=== PATIENT | female | born 1950 | race Caucasian/White ===

== ENCOUNTER 2023-07-04 10:21 | Emergency (ER) | payer MEDICARE, SELFPAY ==
[2023-07-04] VITALS (20 sets, daily range): BP systolic 125–195; BP diastolic 78–102; PULSE 62–81; RESP 18; TEMP 35.9; O2SAT 92–97; BMI 21.1
--- NOTE | 2023-07-04 11:01 | CRLHL7_ITS ---
For Patients: As a result of the Cures Act, medical imaging exams and procedure reports are released immediately into your electronic medical record. You may view this report before your referring provider. If you have questions, please contact your health care provider. INDICATION: SOB, right lower rib pain TECHNIQUE: Chest 2 views COMPARISON: 12/22/2015, 05/12/2016 FINDINGS: Lung volumes are increased. Degenerative changes. Postop changes upper lumbar spine. No fracture. Cardiac silhouette is similar. Unchanged central pulmonary vessels. Postop changes left shoulder. No acute infiltrate. No edema or effusion. No pneumothorax. IMPRESSION: No acute findings. Dictated by Shiraz Salgado MD @ 07/04/2023 11:54:43 AM (Electronically Signed)
--- OUTSIDE RECORDS SUMMARY | 2023-07-04 11:14 | XMS_ITS | Continuity of Care Document ---
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 [employer] Name Role Phone Evens Willis MD Unavailable Unavailable Allergies, Adverse Reactions, Alerts Substance Reaction Status Criticality Penicillins Active No Information Procedures Procedure Date Office/Outpatient Visit,Est, Mod 2012 X-Ray Exam Lower Spine 2-3 Views 2012 Advance Directives Directive Yes / No Effective Date File Name No Information Encounters Encounter Description Practice Location Reason(s) For Visit Diagnoses Date Provider Providers Copied on Encounter [facility], [address] [place] [address], [facility], tel:[phone] [facility] No Information 4 Alba Horner. [facility], [address] [place] [address] [address], [place], [id number], [place]. tel:[phone] Office/Outpat ient Visit,Est, Mod [facility], [address] [place], [place] [address] [place] [address], [address], [place] tel:[phone] [facility] [place] 3 Mehbod Amir. [facility], [address] [place] [address], [place], [id number], [place]. tel:[phone] Family History Family Member Type Diagnosis Age At Onset No Information Payers Payer name Insurance type Covered democrat ID Authorkadeema trung(s) [facility] [id number] Out Of State [id number] Social History Type Description Quantity Date Captured Comments Sex Female Smoking Status No Information Chief Complaint And Reason For Visit No Information Reason For Referral Reason For Referral No Information History Of Present Illness Encounter Date Complaint History Of Prese nt Illness No Information Functional Status Date Functional Assessmen t No Information Instructions Date Instruction Additional Infor mation No Information Assessments Type Assessment Date No Information Patient Care Teams Name Effective Dates (start - stop) Status Members No Information
--- NOTE | 2023-07-04 11:18 | ED_ITS ---
HPI - General Adult General Date Seen: 07/04/23 Chief complaint: Cough Stated complaint: R side pain, asthma flareup Time Seen by Provider: 07/04/23 10:49 Source: patient Mode of arrival: ambulatory Limitations: no limitations History of Present Illness HPI narrative: Patient is a 73-year-old female with a history of asthma presenting to the emergency department for cough, right-sided rib pain, increased shortness of breath. She states she chronically has issues with her cough but but will cause her right lower ribs to hurt. She states usually low the pain only lasts for a few days but this time it is has lasted for a week. She also says she has chronic shortness of breath but does feel like it has been worse for the past week. She has been having intermittent wheezing but states she has been using her home inhalers with improvement in her symptoms. She does not like taking cough suppressants. Says the pain is tolerable at this time. She talked to the triage nurse for her clinic and they recommended she come in for evaluation. Patient is concerned she could have a blood clot in her lungs. Denies fevers, chills, chest pain, nausea, vomiting, diarrhea, constipation, lightheadedness, dizziness. Related Data Home Medications Medication Instructions Recorded Confirmed albuterol sulfate 90 mcg/actuation 2 puff inhalation Q4H PRN wheezing 07/04/23 07/04/23 aerosol inhaler atorvastatin 20 mg tablet 20 mg PO DAILY 07/04/23 07/04/23 lisinopril 5 mg tablet 5 mg PO DAILY 07/04/23 07/04/23 metformin 500 mg tablet 500 mg PO BID 07/04/23 07/04/23 montelukast 10 mg tablet 10 mg PO DAILY 07/04/23 07/04/23 omeprazole 20 mg capsule,delayed 20 mg PO DAILY 07/04/23 07/04/23 release trazodone 100 mg tablet 50 mg PO QPM 07/04/23 07/04/23 venlafaxine 37.5 mg PO 07/04/23 capsule,extended release 24 hr Previous Rx's Medication Instructions Recorded dextromethorphan-guaifenesin 10 1 tab-cap PO Q8H #15 caps 07/04/23 mg-200 mg capsule (Robitussin Cough-Chest Congestion DM) Allergies Allergy/AdvReac Type Severity Reaction Status Date / Time Penicillins Allergy Unknown Verified 07/04/23 14:38 Review of Systems Status of ROS: Reports: 10 or more systems reviewed and unremarkable except as noted in History and below PFSH PFS Social History Smoking Status: Former smoker How often do you have a drink containing alcohol: never AUDIT-C Alcohol total score: 0 Non-prescribed substance use: denies use Exam Narrative: Exam Narrative: Const: Well-nourished, Well-developed, in mild distress Eyes: PERRL, no conjunctival injection, and symmetrical lids HENT: Atraumatic external nose and ears. Moist mucous membranes. Neck: Symmetric, trachea midline, No thyromegaly. CVS: RRR, No murmurs or gallops. Peripheral pulses 2+ and equal in all ex tremities RESP: Unlabored respiratory effort. Clear to auscultation bilaterally. GI: Nontender/Nondistended, No rebound or guarding. MSK:Extremities w/o deformity, Normal Active ROM Skin: Warm, Dry. No rashes or lesions. Neuro: Normal Muscle tone, No focal neurological deficits. Psych: Awake, Alert, & Oriented x3. Appropriate mood and affect. Const: Vital Signs, click to edit/add: Vital Signs - 24 hr 07/04/23 10:31 07/04/23 12:15 07/04/23 12:16 Temperature 96.6 F L Pulse Rate 72 67 Pulse Rate [Pulse Oximeter] 76 Respiratory Rate 18 Blood Pressure 136/82 Blood Pressure [Ri ght Upper Arm] 152/79 H Pulse Oximetry 95 94 94 Oxygen Delivery Me thod Room Air 07/04/23 12:30 07/04/23 12:31 07/04/23 13:00 Temperature Pulse Rate 67 67 67 Pulse Rate [Pulse Oximeter] Respiratory Rate Blood Pressure 125/102 H Blood Pressure [Ri ght Upper Arm] Pulse Oximetry 94 95 96 Oxygen Delivery Me thod 07/04/23 13:02 07/04/23 13:30 07/04/23 13:31 Temperature Pulse Rate 71 62 63 Pulse Rate [Pulse Oximeter] Respiratory Rate Blood Pressure 146/78 H 151/84 H Blood Pressure [Ri ght Upper Arm] Pulse Oximetry 95 94 94 Oxygen Delivery Me thod 07/04/23 13:32 07/04/23 14:00 07/04/23 14:01 Temperature Pulse Rate 63 74 70 Pulse Rate [Pulse Oximeter] Respiratory Rate Blood Pressure 169/87 H Blood Pressure [Ri ght Upper Arm] Pulse Oximetry 95 94 95 Oxygen Delivery Me thod 07/04/23 14:30 07/04/23 14:31 07/04/23 14:35 Temperature Pulse Rate 81 77 70 Pulse Rate [Pulse Oximeter] Respiratory Rate Blood Pressure 193/101 H 195/96 H Blood Pressure [Ri ght Upper Arm] Pulse Oximetry 92 92 96 Oxygen Delivery Me thod 07/04/23 15:00 07/04/23 15:02 07/04/23 15:30 Temperature Pulse Rate 62 62 62 Pulse Rate [Pulse Oximeter] Respiratory Rate Blood Pressure 183/79 H Blood Pressure [Ri ght Upper Arm] Pulse Oximetry 97 97 97 Oxygen Delivery Me thod 07/04/23 15:31 07/04/23 15:32 Temperature Pulse Rate 62 63 Pulse Rate [Pulse Oximeter] Respiratory Rate Blood Pressure 185/83 H Blood Pressure [Ri ght Upper Arm] Pulse Oximetry 96 96 Oxygen Delivery Me thod Course Vital Signs Vital signs: Initial Vital Signs Temperature 96.6 F L 07/04/23 10:31 Temperature Source Temporal Artery Scan 07/04/23 10:31 Pulse Rate 76 07/04/23 10:31 Respiratory Rate 18 07/04/23 10:31 Respiratory Effort Normal 07/04/23 10:31 Respiratory Depth Normal 07/04/23 10:31 Respiratory Pattern Normal 07/04/23 10:31 Blood Pressure 152/79 H 07/04/23 10:31 Blood Pressure Mean 103 07/04/23 10:31 Blood Pressure Position Supine 07/04/23 10:31 Pulse Oximetry 95 07/04/23 10:31 Oxygen Delivery Method Room Air 07/04/23 10:31 Vital Signs Temperature 96.6 F L 07/04/23 10:31 Pulse Rate 76 07/04/23 10:31 Respiratory Rate 18 07/04/23 10:31 Blood Pressure 152/79 H 07/04/23 10:31 Pulse Oximetry 95 07/04/23 10:31 Oxygen Delivery Method Room Air 07/04/23 10:31 Temperature 96.6 F L 07/04/23 10:31 Pulse Rate 63 07/04/23 15:32 Respiratory Rate 18 07/04/23 10:31 Blood Pressure 185/83 H 07/04/23 15:31 Pulse Oximetry 96 07/04/23 15:32 Oxygen Delivery Method Room Air 07/04/23 10:31 Medical Decision Making MDM Narrative Medical decision making narrative: Patient is a 73 female presenting to emergency department for rib pain, shortness of breath, cough. She does get these symptoms regularly but she states they have been worse over the past week. She tried to get in with primary care provider and was told to come to the emergency department. She is concerned she could have a blood clot. We will order D-dimer. Unlikely to be a pneumothorax or rib fractures but x-ray will be ordered. He is not having lower extremity edema and no crackles in the lungs but will check a BNP to look for other signs of CHF. She is not feeling she needs a breathing treatment this time and her lungs sound clear no sounds of wheezing. Also ordered a cbc, CMP. Patient cbc and so white count 4.42. This is mildly low and could be signs of a viral infection. CMP shows no concerning abnormalities. Troponins within normal limits. BMP shows no concerning abnormalities. COVID and flu were negative. D-dimer is elevated at 0.88 and a CTA of the chest was ordered to rule out a pulmonary embolism. Chest x-ray showed no concerning abnormalities. EKG appears normal. Patient was given Toradol for pain and symptoms improved. CTA shows no concerning abnormalities. Her blood pressure did elevate to 185/83 but she is not symptomatic at this time and does not need to be treated in the emergency department. No signs of pulmonary embolism, ACS, pneumothorax, aortic dissection. Symptoms are most likely secondary to muscle strain that occurred from all her coughing. She will be discharged with cough medicine and she is agreeable to this plan. Lab Data Labs: Lab Results 07/04/23 07/04/23 Range/Units 11:25 13:20 WBC 4.42 L (4.50-11.00) K/uL RBC 4.12 (4.00-5.20) m/uL Hgb 12.4 (12.0-16.0) gm/dL Hct 37.9 (33.0-51.0) % MCV 92 (80-100) fL MCH 30 (26-34) pg MCHC 33 (32-36) gm/dL RDW Coeff of Monica 12.1 (11.5-15.5) % Plt Count 207 (140-440) K/uL Neut % (Auto) 62.4 (42.0-72.0) % Lymph % (Auto) 28.3 (20-44) % Canyon % (Auto) 7.0 (0.0-11.0) % Eos % (Auto) 1.4 (0.0-7.0) % Baso % (Auto) 0.7 (0.0-3.0) % Neut # (Auto) 2.80 (1.7-7.0) K/uL Lymph # (Auto) 1.30 (0.90-2.90) K/uL Canyon # (Auto) 0.30 (0.00-0.90) K/UL Eos # (Auto) 0.10 (0.00-0.50) K/uL Baso # (Auto) 0.00 (0.00-0.30) K/uL Abs Immat Gran (auto) 0.00 (0.00-0.30) K/uL Imm/Tot Granulo (auto) 0.2 % D-Dimer Quant (PE/DVT) 0.88 H (0.00-0.50) ug/ml Sodium 134 L (135-149) mmol/L Potassium 3.7 (3.6-5.1) mmol/L Chloride 98 (96-114) mmol/L Carbon Dioxide 30 (20-32) mmol/L Anion Gap 6 L (7-15) mEq/L BUN 10 (7-30) mg/dL Creatinine 0.6 (0.5-1.5) mg/dL Estimated Creat Clear 43.27 Estimated GFR 95 ml/min Glucose 115 (60-115) mg/dL Calcium 8.9 (8.4-10.6) mg/dL Total Bilirubin 0.2 (0.1-1.5) mg/dL AST 24 (12-35) U/L ALT 13 (4-35) U/L Alkaline Phosphatase 42 (40-150) U/L Troponin I < 0.01 L (0.01-0.04) ng/mL NT-Pro-B Natriuret Pep 257 pg/mL Total Protein 6.2 (6.0-8.3) g/dL Albumin 3.6 (3.3-5.0) g/dL Urine Color Yellow (Yellow) Urine Appearance Clear (Clear) Urine pH 5.5 (5.0-8.5) Ur Specific Cushing 1.025 (1.000-1.030) Urine Protein Negative (Negative) Urine Glucose (UA) Negative (Negative) Urine Ketones Negative (Negative) Urine Blood Negative (Negative) Urine Nitrite Negative (Negative) Urine Bilirubin Negative (Negative) Urine Urobilinogen 0.2 (0.2-1.0) Ur Leukocyte Esterase Negative (Negative) Urine RBC 0-2 (0-2) Urine WBC 0-2 (0-5) Ur Squamous Epith Cells Few (None-Few) Urine Bacteria None (None) SARS-CoV-2 (PCR) Negative SARS-CoV-2 (Negative) Influenza Type A (PCR) Negative PCR FLU A (Negative) Influenza Type B (PCR) Negative PCR FLU B (Negative) Imaging Data Chest x-ray: Radiologist's impression: INDICATION: SOB, right lower rib pain TECHNIQUE: Chest 2 views COMPARISON: 12/22/2015, 05/12/2016 FINDINGS: Lung volumes are increased. Degenerative changes. Postop changes upper lumbar spine. No fracture. Cardiac silhouette is similar. Unchanged central pulmonary vessels. Postop changes left shoulder. No acute infiltrate. No edema or effusion. No pneumothorax. IMPRESSION: No acute findings. Dictated by Shiraz Salgado MD @ 07/04/2023 11:54:43 AM CTA chest: Radiologist's impression: INDICATION: Shortness of breath. TECHNIQUE: CT chest PE was acquired with 95 cc Isovue 370 IV contrast. COMPARISON: None. FINDINGS: Heart and vasculature: Contrast opacification of the pulmonary arterial tree is adequate. No sign of pulmonary embolism. Heart size is normal. Thoracic aorta and pulmonary artery are normal in caliber. Moderate coronary artery calcification. Mild aortic calcification Lungs and pleura: Moderate emphysema and moderate diffuse large airways thickening. Numerous pulmonary nodules measuring up to 6 millimeters (for example 6 millimeter medial right lower lobe nodule, series 4, image 134). Additional nodules include a 3 millimeter right upper lobe nodule on series 4, image 114 and a 4 millimeter nodule in the superior segment of the right lower lobe on series 4, image 102. Some of these nodules are new or mildly increased in size compared to 2015. No dense airspace consolidation. No pleural effusions, pleural thickening, or pneumothorax. Lymph nodes/mediastinum: No mediastinal, hilar, or axillary adenopathy. Chest wall: No masses. Upper abdomen: No acute or significant findings. Bones: Degenerative spondylosis. No suspicious osseous lesion. IMPRESSION: 1. Negative for pulmonary embolism. 2. Multiple pulmonary nodules measuring up to 6 millimeters. While many of these were present in 2015, some are new and some have slightly enlarged. Recommend 6 a 12 month follow-up CT per Fleischner society guidelines. Please note that all CT scans at this facility use dose modulation, iterative reconstruction, and/or weight-based dosing when appropriate to reduce radiation dose to as low as reasonably achievable. Dictated by Eric Wharton MD @ 07/04/2023 2:56:53 PM ECG Data Attestation: I personally reviewed and interpreted this ECG as follows: Prior ECG tracings: not available for review Interpretation: EKG shows a normal size rhythm with a rate of 75 beats per minute, normal intervals, normal axis, no ST T-wave abnormalities Discharge Plan Discharge Clinical Impression: Muscle strain of chest wall Patient Disposition: Home, Self-Care Condition: Improved Instructions: Muscle Strain (DC) Additional Instructions: Take Tylenol and ibuprofen for pain. There is no signs of cardiac issues or lung problems causing your rib pain. You do not have COVID or flu. Her cough likely caused a muscle strain and that is the pain you are having. I did give you a prescription for Robitussin. Return for new worsening symptoms. Follow- up with your provider about your lung nodules Prescriptions: New Robitussin Cough-Chest Sergio DM 10-200 mg capsule 1 tab-cap PO Q8H Qty: 15 0RF No Action metformin 500 mg tablet 500 mg PO BID venlafaxine 37.5 mg capsule,extended release 24hr PO atorvastatin 20 mg tablet 20 mg PO DAILY trazodone 100 mg tablet 50 mg PO QPM omeprazole 20 mg capsule,delayed release(DR/EC) 20 mg PO DAILY montelukast 10 mg tablet 10 mg PO DAILY lisinopril 5 mg tablet 5 mg PO DAILY albuterol sulfate 90 mcg/actuation HFA aerosol inhaler 2 puff INHALATION Q4H PRN (Reason: wheezing) Follow Up/Referrals: Bethanie Dumont MD [Primary Care Provider] - Stand Alone Forms: fluid Operationsth Info Instructions
[2023-07-04 11:37] LABS: Basophils Percent Auto 0.7 % (0.0-3.0); Eosinophils Percent Auto 1.4 % (0.0-7.0); Hematocrit 37.9 % (33.0-51.0); Hemoglobin* 12.4 gm/dL (12.0-16.0); Immature Granulocytes Pct Auto 0.2 %; Lymphocytes Percent Auto 28.3 % (20-44); Mean Corpuscular HGB Conc 33 gm/dL (32-36); Mean Corpuscular Hemoglobin 30 pg (26-34); Mean Corpuscular Volume 92 fL (80-100); Neutrophils Percent Auto 62.4 % (42.0-72.0); Platelet Count* 207 K/uL (140-440); RDW Coefficient of Variation % 12.1 % (11.5-15.5); Red Blood Count 4.12 m/uL (4.00-5.20); White Blood Count* 4.42 K/uL (4.50-11.00)
[2023-07-04 11:45] LABS: Slide Review Reflex No
[2023-07-04 11:58] LABS: D Dimer Quantitative* 0.88 ug/ml (0.00-0.50)
[2023-07-04 11:59] LABS: Albumin* 3.6 g/dL (3.3-5.0); Chloride* 98 mmol/L (96-114)
[2023-07-04 12:00] LABS: Potassium* 3.7 mmol/L (3.6-5.1); Sodium* 134 mmol/L (135-149)
[2023-07-04 12:02] LABS: Alanine Aminotransferase* 13 U/L (4-35); Alkaline Phosphatase* 42 U/L (40-150); Anion Gap 6 mEq/L (7-15); Aspartate Amino Transferase* 24 U/L (12-35); Bilirubin Total* 0.2 mg/dL (0.1-1.5); Blood Urea Nitrogen* 10 mg/dL (7-30); Carbon Dioxide* 30 mmol/L (20-32); Creatinine* 0.6 mg/dL (0.5-1.5); Est. Creatinine Clearance* 43.27; Estimated Glomerular Filt Rate 95 ml/min; Glucose* 115 mg/dL (60-115); Total Protein* 6.2 g/dL (6.0-8.3)
[2023-07-04 12:03] LABS: Calcium* 8.9 mg/dL (8.4-10.6)
[2023-07-04 12:11] LABS: PCR FLU A Negative PCR FLU A (Negative); PCR FLU B Negative PCR FLU B (Negative)
[2023-07-04 12:12] LABS: SARS PCR* Negative SARS-CoV-2 (Negative)
--- NOTE | 2023-07-04 12:13 | CRLHL7_ITS ---
For Patients: As a result of the Century Cures Act, medical imaging exams and procedure reports are released immediately into your electronic medical record. You may view this report before your referring provider. If you have questions, please contact your health care provider. INDICATION: Shortness of breath. TECHNIQUE: CT chest PE was acquired with 95 cc Isovue 370 IV contrast. COMPARISON: None. FINDINGS: Heart and vasculature: Contrast opacification of the pulmonary arterial tree is adequate. No sign of pulmonary embolism. Heart size is normal. Thoracic aorta and pulmonary artery are normal in caliber. Moderate coronary artery calcification. Mild aortic calcification Lungs and pleura: Moderate emphysema and moderate diffuse large airways thickening. Numerous pulmonary nodules measuring up to 6 millimeters (for example 6 millimeter medial right lower lobe nodule, series 4, image 134). Additional nodules include a 3 millimeter right upper lobe nodule on series 4, image 114 and a 4 millimeter nodule in the superior segment of the right lower lobe on series 4, image 102. Some of these nodules are new or mildly increased in size compared to 2015. No dense airspace consolidation. No pleural effusions, pleural thickening, or pneumothorax. Lymph nodes/mediastinum: No mediastinal, hilar, or axillary adenopathy. Chest wall: No masses. Upper abdomen: No acute or significant findings. Bones: Degenerative spondylosis. No suspicious osseous lesion. IMPRESSION: 1. Negative for pulmonary embolism. 2. Multiple pulmonary nodules measuring up to 6 millimeters. While many of these were present in 2015, some are new and some have slightly enlarged. Recommend 6 a 12 month follow-up CT per Fleischner society guidelines. Please note that all CT scans at this facility use dose modulation, iterative reconstruction, and/or weight-based dosing when appropriate to reduce radiation dose to as low as reasonably achievable. Dictated by Eric Wharton MD @ 07/04/2023 2:56:53 PM (Electronically Signed)
[2023-07-04 12:15] LABS: NT Pro B Type NatriureticPept* 257 pg/mL; Troponin I* < 0.01 ng/mL (0.01-0.04)
[2023-07-04 13:32] LABS: Appearance Urine Clear (Clear); Bilirubin Urine Negative (Negative); Blood Urine Negative (Negative); Color Urine Yellow (Yellow); Glucose Urine Negative (Negative); Ketones Urine Negative (Negative); Leukocyte Esterase Urine Negative (Negative); Nitrite Urine Negative (Negative); Protein Urine Negative (Negative); Specific Gravity Urine 1.025 (1.000-1.030); Urobilinogen Urine 0.2 (0.2-1.0); pH Urine 5.5 (5.0-8.5)
[2023-07-04 13:39] LABS: RBC Urine 0-2 (0-2); Squamous Epithelial Cell Urine Few (None-Few); WBC Urine 0-2 (0-5)
[2023-07-04] MEDS: KETOROLAC 15 MG/ML inj IVP (15:30)
--- NOTE | 2023-07-04 15:32 | ED.NURSE ---
15 mg toradol iv given per dr. davis
== END 2023-07-04 16:04 | disposition home or self-care (01) ==
PROVIDERS: Emergency Provider Student in an Organized Health Care Education/Training Program; PCP Family Medicine
DX: S29.011A Strain of muscle and tendon of front wall of thorax, initial encounter (principal)
CPT/HCPCS: 36415; 71046; 71275; 80053; 81001; 83880; 84484; 85025; 85379; 87631; 93005; 96374; 99283; 99284; 99285; J1885; Q9967

== ENCOUNTER 2024-12-18 11:40 | Emergency (ER) | payer MEDICARE, SELFPAY ==
--- OUTSIDE RECORDS SUMMARY | 2024-12-18 11:43 | XMS_ITS ---
Author Name Interface, [id number] lity Address [address] [place] [address] [address] [place] [address] Organization [facility] Address [address] [facility] [address] [place] [address] Care Team Providers Care Enrollment Eligibility Representative Name Role Phone Tanika Frias Unavailable Unavailable Allergies and Adverse Reactions Medication/Group Name Reaction Severity Date Penicillins 11/08/2024 Plan Date Type Value 12/19/2024 APPOINTMENT POST OP 30 MIN 12/06/2024 APPOINTMENT SURGERY 2 HR 11/08/2024 APPOINTMENT NEW PT CONSULT 4 5 MIN 11/08/2024 APPOINTMENT LAB 10 MIN Reason for Visit SURGERY 2 HR Encounters Date Name 11/08/2024 Vulvar dysplasia Problems Diagnosis Status Date of Diagnosi s Vulvar dysplasia Active Vital Signs Date Type Value 11/08/2024 Body Temperature 97.80 11/08/2024 Heart Beat 86.00 11/08/2024 Respiratory Rate 20.00 11/08/2024 Oxygen Saturation 93.00 11/08/2024 BSA 1.70 11/08/2024 Pain Scale 7.00 11/08/2024 Weight 145.00 11/08/2024 Height 63.50 11/08/2024 BMI 25.28 11/08/2024 Intravascular Systolic 140 11/08/2024 Intravascular Diastolic 84 Notes Section * 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 Emily Alonzo MD ([facility]) : I had the pleasure of seeing your patient, Miss KAY in regards to her recent referral for [diagnosis]. Though you will, no doubt, recall her history, the following is a copy of my consultation. Please do not hesitate to contact me directly with any concerns at my [place] office at . ??Again, I appreciate your referral of this delightful patient and your support of our practice.?? Sincerely Yours, Tanika Frias M.D. Gynecologic Oncology [facility] Operating at [facility] Reason for Consult: Primary diagnosis: VIN1 Prior treatments: [None Genetic testing: [ ] History of Present Illness ([facility]): This is a delightful??who is being seen for her primary care evaluation and was noted to have a lesion of the posterior vulva.?? She ultimately underwent biopsy revealing KENNEDI 1-2 and presents today for further care and management. Genetic Testing ([facility]): [ ] Review of Systems: A complete 14-point review of systems is negative except as noted in the above history of present illness. Past Medical History: Past medical history is positive for COPD,??diabetes, well-controlled on metformin, hypertension,??and a vulvar skin lesion previously biopsied and found to represent KENNEDI 1 in 2010,??she also has difficulties with gastroesophageal reflux disease, osteoporosis??with pathologic fracture per her??clinician's most recent note. Surgical History: The patient has had surgery on her left and right shoulders, back, and right hip sliver chopper History: This is a G1, P1 with a history of 1 spontaneous vaginal delivery,??she does not endorse any history of abnormal Pap testing Allergies: Penicillins Medications: ?Please review electronic medical record Family History: The patient's family history is positive for??a mother who had lung cancer at age 66,??a maternal brother with leukemia??diagnosed at age 65 and a maternal uncle??diagnosed with a face tumor in his 70s Social History: Smoking Status Smoking Tobacco : Former smoker; Smokeless Tobacco : none found; Vaping : Never vaped Vital Signs: Blood pressure: 140/84, R arm, Regular, Pulse: 86, Temperature: 97.8 F, Respirations: 20, O2 sat: 93%, Room Air, Pain Scale: 7, Height: 63.5 in, Weight: 145 lb, BSA: 1.7, BMI: 25.28 kg/m2 Physical Exam ([facility]): 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 The patient appears comfortable, in no acute distress. HEENT: ??Head normocephalic, atraumatic. ??Extraocular movements intact on confrontation No conjunctivitis. ??No evidence of erythema. ?? Lymphatics: ??Cervical, supraclavicular, infraclavicular, axillary and inguinal nodes not palpable. Abdomen: ??Bowel sounds present and active. Soft, nontender, nondistended with no hepatosplenomegaly or masses noted. Pelvic: There is a small lesion of the posterior and lateral right??vulva measuring 1 cm x 3 cm andmost concerning for low-grade dysplasia. ??Examination of the external genitalia reveals normal vulvar, perianal, perineal or urethral meatal lesions. Bartholin's glands are normal. Speculum exam reveals no bladder, urethral or vaginal lesions, and a grossly normal cervix. No evidence of significant cystocele, rectocele, or enterocele. The uterus is??small mobile, with normal parametrium. The adnexae are not palpably enlarged or nodular . ??Aluminum Molder is present during exam. Muscles and Joints: ??Extremities are warm and well perfused without edema or calf tenderness. Laboratory Data: Pathology Report (Final result) [id number] Authorizing Provider: Emily Alonzo MD Ordering Provider: Ordering Location: [facility] Collected: 10/02/2024 1140 Pathologist: Jocelyn Wagner MD Received: 10/04/2024 1452 Specimens A Right Labia Final DiagnosisA) VULVA, RIGHT LABIA, SHAVE BIOPSY: 1. High grade squamous intraepithelial lesion (KENNEDI 2) arising within a condyloma acuminatum (KENNEDI 1) 2. Peripheral margin: Involved by KENNEDI 1 and KENNEDI 2 3. Negative for invasive carcinoma at 1732 ? 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 She ultimately underwent biopsy revealing KENNEDI 1-2 and presents today for further care and management.?? Today I discussed with the patient that this is neither cancerous nor precancerous lesion, and that,??after 15 years, it has remained a stable lesion.?? This says thelesion is symptomatic and bothersome to the patient and therefore she seeks definitive management.?? Therefore after extensive conversation and counseling I discussed with her proceeding on with a simple vulvectomy for the management of KENNEDI 1. Today I discussed gynecologic oncology preoperative care as outlined in her patient handouts. ??I included discussion of diet before surgery, not to eat solid foods within 8 hours of surgery, taking a glucose-containing clear fluid greater than 2 hours before arrival at the hospital. ??We discussedthe avoidance of shaving or clipping hair prior to surgery. ??We also discussed the use of Chlorhexidine or generic alternative for the 3 days prior to surgery to help minimize the risk of infection.??We discussed preoperative medication and the importance of discontinuing over the counter blood thinning medications including Aspirin, Naproxen, and Ibuprofen. ??I discussed with her the discontinuation of preoperative blood thinners, which will be coordinated with her primary care transitions manager. ??I also discussed with her the lack of necessity for specific bowel preparation.?? The patient understands that all patients undergoing surgery require primary care preoperative clearance. ??I am hopeful that she will be able to obtain this in a timely fashion, and the patient was given instructions to call her primary care clinic immediately to schedule this appointment. Additionally, we discussed the risks, benefits and alternatives of surgery, including risk of infection, bleeding, lymphedema, nerve injury, damage to surrounding structures potentially including thevascular, , and GI systems. She understands that limitations following surgery include pelvic rest , extensive and intentional wound care for the primary surgical site and any secondary sites required. ??She understands that there will be multiple visits to follow-up on the healing status as she recovers from her vulvar surgery. ??Lastly we discussed that the risk from surgery itself is low, however there is always the risk that the stress of anesthesia and surgery could contribute to potential exacerbations to other health conditions, or cause chronic pain. ??She verbalizes understanding and would like to proceed at the next available opportunity. ??Getting the sensitivity of that area and??the extensive history and physical??with details noted above, I sent??more than 1 hour in direct [id number] patient consultation, conversation, and coordination of care. Pain Care Management: Pain Scale: 7 Patient Care needs: Depressions Status: Not recorded on visit Smoking Status: Smoking Tobacco : Former smoker; Smokeless Tobacco : none found; Vaping : Never vaped Orders: Labs:? Medications:? Imaging:? Services:??* 11/08/2024, RTC, Instructions: Ayleen Rolon PA-C.7-10 days postop in person visit with Ольга for pathology review and wound check., Perform Date: 12/19/2024 * 11/08/2024, Schedule surgery, Instructions: Please schedule surgery with Dr. Frias. Procedure: []. Request Date: [ ]., Perform Date: 12/06/2024 Regimens: ?= Tanika Frias MD Copy to: ? Electronically signed by Tanika Frias MD 11/14/2024 09:06 TRENCH SHOVEL OPERATOR
--- OUTSIDE RECORDS SUMMARY | 2024-12-18 11:43 | XMS_ITS | CCD ---
Author Name Interface, [id number] lity Address [address] [place] [address] [address] [place] [address] [facility] Address [address] [facility] [address] [place] [address] Care Team Providers Care Digital Associate Name Role Phone Tanika Frias Unavailable Allergies and Adverse Reactions Care Plan Reason for Visit Encounters Problems Procedures Social History Vital Signs
--- OUTSIDE RECORDS SUMMARY | 2024-12-18 11:43 | XMS_ITS ---
Author Name Interface, [id number] lity Address [address] [facility] [address] [address] Organization [facility] Address [address] [facility] [address] [address] Care Team Providers Care Video And Sound Recorder Name Role Phone Tanika Frias Unavailable Unavailable Allergies and Adverse Reactions Medication/Group Name Reaction Severity Date Penicillins 11/08/2024 Plan Date Type Value 11/08/2024 APPOINTMENT NEW PT CONSULT 4 5 MIN 11/08/2024 APPOINTMENT LAB 10 MIN Reason for Visit SURGERY 2 HR Encounters Date Name 11/08/2024 Vulvar dysplasia Problems Diagnosis Status Date of Diagnosi s Vulvar dysplasia Active Notes Section * 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 Emily Alonzo MD ([facility]) : I had the pleasure of seeing your patient, Miss KAY in regards to her recent referral for [diagnosis]. Though you will, no doubt, recall her history, the following is a copy of my consultation. Please do not hesitate to contact me directly with any concerns at my [place] office at . ??Again, I appreciate your referral of this delightful patient and your support of our practice.?? Sincerely Yours, Tanika Frias M.D. [facility]ologic [facility] Reason for Consult: Primary diagnosis: VIN1 Prior treatments: [None Genetic testing: [ ] History of Present Illness ([facility]): This is a delightful??who is being seen for her primary care evaluation and was noted to have a lesion of the posterior vulva.?? She ultimately underwent biopsy revealing KENNEDI 1-2 and presents today for further care and management. 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 The patient [...] are not palpably enlarged or nodular . ??Drill Bit Sharpener is present during exam. Muscles and Joints: ??Extremities are warm and well perfused without edema or calf tenderness. Laboratory Data: Pathology Report (Final result) [id number] Authorizing Provider: Emily Alonzo MD Ordering Provider: Ordering Location: [facility] Collected: 10/02/2024 1140 Pathologist: Jocelyn Wagner MD [...] the right labia majora, Assessment & Plan ([facility]): This is a delightful??who is being [...] which will be coordinated with her primary animal care provider. ??I also discussed with her the lack [...] I sent??more than 1 hour in direct [id number] patient consultation, conversation, and coordination of care. Pain Care Management: Pain Scale: 7 Patient Care needs: Depressions Status: Not recorded on visit Smoking Status: Smoking Tobacco : Former smoker; Smokeless Tobacco : none found; Vaping : Never vaped Orders: Labs:? Medications:? Imaging:? Services:??* 11/08/2024, RTC, Instructions: Ayleen Ольга, PA-C.7-10 days postop in person visit with Ольга for pathology review and wound check., Perform Date: 12/19/2024 * 11/08/2024, Schedule surgery, Instructions: Please schedule surgery with Dr. Frias. Procedure: []. Request Date: [ ]., Perform Date: 12/06/2024 Regimens: ?= Tanika Frias MD Copy to: ? Electronically signed by Tanika Frias MD 11/14/2024 09:06 COMPLIANCE EXAMINER
--- OUTSIDE RECORDS SUMMARY | 2024-12-18 11:44 | XMS_ITS | Clinical Summary ---
Author Organization [facility] Address [address] [place] [id number] Care Team Providers Care Manager Production Name Role Phone Yi Monte MD Unavailable Andrea Ocampo MD Unavailable [phone] Andrea Ocampo MD Unavailable [phone] Emily Alonzo MD Primary Care Prov ider Allergies Active Allergy Reactions Criticality Noted Date Comments Penicillins *Unknown - Childhood Rxn,Other - Describe In Comment Field 06/30/2007 Medications inhalational spacing deviceIndications: Chronic obstructive pulmonary disease with acute exacerbation (HC) For home use. 1 Each 08/25/20 21 Active durable medical equipment (DME)Indications:C losed nondisplaced fracture of styloid process of left radius with routine healing, subsequent encounter Comfort form wrist, left, muscle length of use 99 months 1 Each 05/24/20 22 Active fluticasone propion-salmeteroL (ADVAIR) 250-50 mcg/Dose diskus inhalerIndications :Chronic obstructive pulmonary disease, unspecified COPD type (HC),Severe persistent asthma without complication Inhale 1 Puff by mouth two times daily. 60 Each 11 12/07/19 24 Active atorvastatin (LIPITOR) 20 mg tabletIndications: Hyperlipidemia, unspecified hyperlipidemia type Take 1 Tablet (20 mg) by mouth once daily. 90 Tablet 3 09/11/20 24 Active albuterol-ipratrop ium (DUONEB) (2.5-0.5 mg) in 3 mL NEBULIZATION solutionIndication s:Chronic obstructive pulmonary disease, unspecified COPD type (HC) USE 1 VIAL VIA NEBULIZER EVERY 6 HOURS NEEDED FOR WHEEZING 360 mL 09/11/20 24 Active albuterol 0.083% (2.5 mg/3 mL) neb solutionIndication s:Chronic obstructive pulmonary disease, unspecified COPD type (HC),Severe persistent asthma without complication Inhale 3 mL (2.5 mg) via a nebulizer 4 times daily if needed for Shortness Of Breath, Wheezing or Cough. 90 Each 5 09/11/20 24 Active celecoxib (CELEBREX) 100 mg capsuleIndications :Back pain without radiation Take 1 Capsule (100 mg) by mouth 2 times daily if needed for Pain. 30 Capsule 3 09/11/20 24 Active lisinopriL (PRINIVIL; ZESTRIL) 10 mg tabletIndications: HTN (hypertension) Take 1 Tablet (10 mg) by mouth once daily. 90 Tablet 3 09/11/20 24 Active metFORMIN (GLUCOPHAGE) 500 mg tabletIndications: Type 2 diabetes mellitus without complication, without long-term current use of insulin (HC) Take 1 Tablet (500 mg) by mouth two times daily with meals. 180 Tablet 3 09/11/20 24 Active montelukast (SINGULAIR) 10 mg tabletIndications: Severe persistent asthma without complication Take 1 Tablet (10 mg) by mouth at bedtime. 90 Tablet 3 09/11/20 24 Active omeprazole (PRILOSEC) 20 mg Delayed-Release capsuleIndications :Gastroesophageal reflux disease, unspecified whether esophagitis present Take 1 Capsule (20 mg) by mouth once daily before a meal. 90 Capsule 3 09/11/20 24 Active traZODone (DESYREL) 50 mg tabletIndications: Dysthymic disorder Take 1 Tablet (50 mg) by mouth at bedtime. 90 Tablet 3 09/11/20 24 Active umeclidinium (INCRUSE ELLIPTA) 62.5 mcg/actuation inhalerIndications :Chronic obstructive pulmonary disease, unspecified COPD type (HC),Severe persistent asthma without complication Inhale 1 Puff by mouth once daily. Discard inhaler 6 weeks after opening or when the counter reads '0' (after all blisters have been used), whichever comes first. 28 Each 11 09/11/20 24 Active venlafaxine (EFFEXOR XR) 37.5 mg Extended-Release capsuleIndications :Dysthymic disorder Take 3 Capsules (112.5 mg) by mouth once daily with a meal. 270 Capsule 3 09/11/20 24 Active albuterol HFA (Ventolin HFA) 90 mcg/actuation inhalerIndications :Severe persistent asthma without complication Inhale 1-2 Puffs by mouth every 6 hours if needed for Shortness Of Breath or Wheezing. 18 g 3 09/11/20 24 Active lisinopril-hydroch lorothiazide 20-12.5 mg tablet (PRINZIDE)Indicati ons:HTN (hypertension) Take 1 Tablet by mouth once daily. 30 Tablet 3 10/09/19 25 Active cetirizine (ZYRTEC) 10 mg tabletIndications: Chronic obstructive pulmonary disease, unspecified COPD type (HC),Severe persistent asthma without complication Take 1 Tablet (10 mg) by mouth once daily. 90 Tablet 2 12/04/19 25 Active cetirizine (ZYRTEC) 10 mg tabletIndications: Chronic obstructive pulmonary disease, unspecified COPD type (HC),Severe persistent asthma without complication Take 1 Tablet (10 mg) by mouth once daily. 90 Tablet 3 09/11/20 24 025 Discontin ued(*Avai lability/ Formulary change/Co st of medicatio n) Active Problems Problem Noted Date Diagnosed Date Condyloma acuminatum 10/02/2024 Depression, recurrent 10/02/2024 Vocal cord dysfunction 12/07/2023 Severe persistent asthma with acute exacerbation 08/15/2023 Asthma, moderate persistent 01/27/2017 Type 2 diabetes mellitus without complication Overview (12/28/2015): Diagnosis 07/2013 during hospitalization elevated blood sugar of 229. 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 02/23/2013 Chronic airway obstruction, not elsewhere classi fied 06/30/2007 Allergic rhinitis, cause unspecified 06/30/2007 Dysthymic disorder 06/30/2007 Resolved Problems Problem Noted Date Diagnosed Date Resolved Date Displacement of lumbar inter vertebral disc without myelopathy 11/24/2012 02/23/2013 Unspecified asthma(493.90) 06/30/2007 0 01/27/2017 Encounters Date Type Department Care Team Description 12/17/2024 Nurse Triage [address] [address] Anil Thibodeaux MD Breathing Problem 12/03/[address] [address] Emily Alonzo MD Refill Request; CETIRIZINE 10/23/[address] [address] Emily Alonzo MD Follow Up ([employer] ) 10/05/[address] [address] Emily Alonzo MD Refill Request (Lisinopril 5mg tablets) 10/05/[address] [address] Emily Alonzo MD Hypertension 10/02/2024 10:40 AM EDUCATIONAL PSYCHOLOGY PROFESSOR Office Visit [address] [address] Emily Alonzo MD Medicare ANNUAL (subsequent) Visit (74 year old Medicare Wellness Exam ); Memory Loss (Slums); Lesion Removal (Shave biopsy ) 10/02/2024 Travel 09/28/[address] [address] Emily Alonzo MD Refill Request (Metformin) from Last 3 Months Immunizations Immunization Administration Dates Next Due COVID-19 vaccine ([employer] 30mcg/0.3mL) PFMDV 08/25/2021 Influenza, CCIIV3 (Age >=6 M O) (Egg Free) 07/02/2013 Influenza, High-dose Inactivated 06/22/2016 Influenza, IIV3 (Age 6-35 mos) 07/01/2015 Influenza, IIV3 (Age >=3 years) 07/03/20 12,07/18/2008,07/10/2007,2004 Influenza, Inactivated AIIV4 (Age 65+ Years) Preserv Free 08/15/2023,07/17/2022,08/25/2021,2019 Influenza, Inactivated IIV3 (Age 65+ Years) Preserv Free 09/11/2024,07/27/2019,06/19/2018 Pneumococcal Conj 20-valent (Prevnar 20) 08/02/2022 Pneumococcal Poly,23-Valent (Pneumovax) 06/29/2013 Pneumococcal conj 13-Valent (Prevnar 13) 02/21/2017 Pneumococcal, Unspecified 06/30/2013 Td, Preservative Free (age > = 7 Years) 02/21/2017 Tdap 07/10/2007 Zoster (Shingrix-RZV, recombinant) 06/04/2022, Family History Medical History Relation Name Comments Diabetes Brother Diabetes Maternal Grandmother Alcohol/Drug Mother Allergies Mother Cancer Mother lung Psychiatric illness Mother Diabetes Son Anesthesia Problem No Family History Blood Disease No Family History Relation Name Status Comments Brother Maternal Grandmother Mother Son Social History Tobacco Use Types Packs/Day Years Used Date Smoking Tobacco: Former Cigarettes 1.5 36 0 06/03/1971 - 06/03/2007 Smokeless Tobacco: Never Tobacco Cessation:Counseling Given: Yes Comments:Quit with Chantix Alcohol Use Standard Drinks/Week Comments Not Currently 0 (1 standard drink = 0.6 oz pur e alcohol) PHQ-2 Answer Date Recorded PHQ-2 TOTAL SCORE 2 10/02/2024 Social Connections Answer Date Recorded Do you often feel lonely or isolated from those around you? 0 06/13/2024 Financial Resource Strain Answer Date R ecorded Difficulty of Paying Living Expenses 3 06/13/2024 Difficulty of Paying Living Expenses Not on file 06/13/2024 Food Insecurity Answer Date Recorded Do you worry your food will run out before you are able to buy more? 1 06/13/2024 Transportation Needs Answer Date Record ed Does lack of transportation keep you from medica l appointments? 1 06/13/2024 Does lack of transportation keep you from work, meetings or getting things that you need? 1 06/13/2024 Housing Stability Answer Date Recorded What is your housing situation today? 1 06/13/2024 Utilities Answer Date Recorded Do you have trouble paying f or utilities (for example, heat, electricity, water, phone)? 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 Not on file Not on file Not on file Obstetrics History Para Term AB IAB SAB Ectopic Multiple Livin g Live Births 1 1 Date Outcome GA Total Labor Labor/2nd/3rd Weight Sex Type Anes PTL Bibi A1 A5 Name Clin Last Filed Vital Signs Vital Sign Reading Time Taken Comments Blood Pressure 176/115 10/02/2024 10:56 AM EDUCATIONAL PSYCHOLOGY PROFESSOR Pulse 56 10/02/2024 10:56 AM EDUCATIONAL PSYCHOLOGY PROFESSOR Temperature 36.7 C (98 F) 06/21/2022 11:24 AM CDT Respiratory Rate 18 07/29/2020 11:36 AM CDT Oxygen Saturation 98% 09/11/2024 10:52 AM EDUCATIONAL PSYCHOLOGY PROFESSOR Inhaled Oxygen Concentration - - Weight 66.7 kg (147 lb) 10/02/2024 10:56 AM EDUCATIONAL PSYCHOLOGY PROFESSOR Height 157 cm (5' 1.81) 10/02/2024 10:56 AM EDUCATIONAL PSYCHOLOGY PROFESSOR Body Mass Index 27.05 10/02/2024 10:56 AM EDUCATIONAL PSYCHOLOGY PROFESSOR Plan of Treatment Health Maintenance Due Date Last Done Comments RSV vaccine for adults or (1 - Risk 60-74 years 1-dose series) [address] (for lung CA) ag e 50-80 12/28/2016 12/29/2015, 10/29/2011, 12/19/2007 Fecal testing non-DNA (FIT,FOBT,iFOBT) for age 45-75 08/16/2023 08/16/2022, 08/06/2021, 07/30/2019, Additional history exists COVID-19 vaccine series ( season) 2024 08/25/2021, 12/26/2020, 12/05/2020 Mammogram for age 45-75 09/13/2024 09/13/20, 09/22/2021, 06/26/2018, Additional history exists BMI (ht and wt on same day) for age 18+ 10/02/2025 10/02/2024, 08/15/2023, 08/25/2021, Additional history exists Medicare Wellness for age 65+ 10/03/2025 10/02/2024, 08/15/2023 Depression screening for age 12+ 10/05/2025 10/05/2024, 10/05/2024, 10/02/2024, Additional history exists Tetanus booster 02/21/2027 02/21/2017, 07/10/2007 Lipids for age 45-75 09/13/2028 09/13/2023, 08/02/2022, 08/25/2021, Additional history exists Tdap Completed 07/10/2007 Hepatitis C screening for ag e 18-79 Completed 02/21/2017 DEXA/DXA scan for age 65+ Completed 09/22/2021 Zoster (shingles) series for age 50+ Completed 06/04/2022, 09/22/2021 Pneumococcal series for age 50+ Completed 08/02/2022, 02/21/2017, 06/30/2013, Additional history exists Influenza Vaccine Completed 09/11/2024, , 07/17/2022, Additional history exists Procedures Procedure Name Priority Date/Time Associated Diagnosis Comments FERRITIN Routine 10/02/2024 12:02 PM EDUCATIONAL PSYCHOLOGY PROFESSOR Mild dementia with anxiety, unspecified dementia type (HC) Other somatoform disorders VITAMIN B12 Routine 10/02/2024 12:02 PM EDUCATIONAL PSYCHOLOGY PROFESSOR Mild dementia with anxiety, unspecified dementia type (HC) TSH Routine 10/02/2024 12:02 PM EDUCATIONAL PSYCHOLOGY PROFESSOR Mild dementia with anxiety, unspecified dementia type (HC) Anxiety disorder, unspecified type CBC WITH AUTO DIFFERENTIAL Routine 10/02/2024 12:02 PM EDUCATIONAL PSYCHOLOGY PROFESSOR Mild dementia with anxiety, unspecified dementia type (HC) PATH TISSUE EXAM Routine 10/02/2024 11:4 0 AM EDUCATIONAL PSYCHOLOGY PROFESSOR Condyloma acuminatum XR MAMMO KADIE BILAT SCREEN Routine 09/13/2023 8:32 AM EDUCATIONAL PSYCHOLOGY PROFESSOR Visit for screening mammogram LIPID PANEL W REFLEX MEASURED LDL Routine 09/13/2023 8:10 AM EDUCATIONAL PSYCHOLOGY PROFESSOR Hyperlipidemia, unspecified hyperlipidemia type OCCULT BLOOD IFOBT STOOL Routine 08/16/2022 2:45 PM EDUCATIONAL PSYCHOLOGY PROFESSOR Screening for colon cancer XR DXA BONE DENSITY 1 SITE AXIAL AND 1 SITE PERIPHERAL Routine 09/22/2021 10:33 AM EDUCATIONAL PSYCHOLOGY PROFESSOR Screening for osteoporosis ANTI HCV Routine 02/21/2017 9:29 AM CDT Need for hepatitis C screening test CT CHEST PE STUDY Routine 12/29/2015 6:5 6 PM CDT SOB (shortness of breath) Cough Pulmonary nodule from Last 3 Months or Most Recently Relevant to Health Maintenance Results * TSH [95228.1] (10/02/2024 12:02 PM EDUCATIONAL PSYCHOLOGY PROFESSOR) Pathologist [facility] [place] TSH 2.06 0.40 - 4.50 mIU/L [facility] Blood BLOOD SPECIMEN / Unknown 10/02/2024 12:02 PM EDUCATIONAL PSYCHOLOGY PROFESSOR 10/02/2024 12:02 PM EDUCATIONAL PSYCHOLOGY PROFESSOR us Emily Alonzo MD CHEMISTRY Fi nal Result [facility] [address] [place] [address], [facility] [address] [place] [address] * CBC AND DIFFERENTIAL (10/02/2024 12:02 PM EDUCATIONAL PSYCHOLOGY PROFESSOR) Pathologist [facility] [place] WHITE BLOOD CELL COUNT 6.0 3.8 - 10.8 Thousand/u L [facility] RED BLOOD CELL COUNT 4.93 3.80 - 5.10 Million/uL [facility] HEMOGLOBIN 14.7 11.7 - 15.5 g/dL [facility] HEMATOCRIT 44.1 35.0 - 45.0 % [facility] MCV 89.5 80.0 - 100.0 fL [facility] MCH 29.8 27.0 - 33.0 pg [facility] MCHC 33.3 32.0 - 36.0 g/dL [facility] Comment: For adults, a slight decrease in the calculated MCHC value (in the range of 30 to 32 g/dL) is most likely not clinically significant; however, it should be interpreted with caution in correlation with other red cell parameters and the patient's clinical condition. RDW 12.6 11.0 - 15.0 % [facility] PLATELET COUNT 237 140 - 400 Thousand/u L [facility] MPV 9.6 7.5 - 12.5 fL [facility] ABSOLUTE NEUTROPHILS 3,720 1,500 - 7,800 cells/uL [facility] ABSOLUTE LYMPHOCYTES 1,776 850 - 3,900 cells/uL [facility] ABSOLUTE MONOCYTES 336 200 - 950 cells/uL [facility] ABSOLUTE EOSINOPHILS 108 15 - 500 cells/uL [facility] ABSOLUTE BASOPHILS 60 0 - 200 cells/uL [facility] NEUTROPHILS 62 % [facility] LYMPHOCYTES 29.6 % [facility] MONOCYTES 5.6 % [facility] EOSINOPHILS 1.8 % [facility] BASOPHILS 1.0 % [facility] Blood BLOOD SPECIMEN / Unknown 10/02/2024 12:02 PM EDUCATIONAL PSYCHOLOGY PROFESSOR 10/02/2024 12:02 PM EDUCATIONAL PSYCHOLOGY PROFESSOR us Emily Alonzo MD HEMATOLOGY Fi nal Result [facility] [address] [place] [address], [place] [phone] [facility] [address] [place] [address] * FERRITIN (10/02/2024 12:02 PM EDUCATIONAL PSYCHOLOGY PROFESSOR) [facility] FERRITIN 79 16 - 288 ng/mL [facility] Blood BLOOD SPECIMEN / Unknown 10/02/2024 12:02 PM EDUCATIONAL PSYCHOLOGY PROFESSOR 10/02/2024 12:02 PM EDUCATIONAL PSYCHOLOGY PROFESSOR Emily Alonzo MD CHEMISTRY Fi nal Result [facility] [address] [place] [address], [place] [phone] [facility] [address] [place] [address] * VITAMIN B12 [[id number]] (10/02/2024 12:02 PM EDUCATIONAL PSYCHOLOGY PROFESSOR) [facility] VITAMIN B12 357 200 - 1,100 pg/mL [facility] Comment: Please Note: Although the reference range for vitamin B12 is 200-1100 pg/mL, it has been reported that between 5 and 10% of patients with values between 200 and 400 pg/mL may experience neuropsychiatric and hematologic abnormalities due to occult B12 deficiency; less than 1% of patients with values above 400 pg/mL will have symptoms. Blood BLOOD SPECIMEN / Unknown 10/02/2024 12:02 PM EDUCATIONAL PSYCHOLOGY PROFESSOR 10/02/2024 12:02 PM EDUCATIONAL PSYCHOLOGY PROFESSOR Emily Alonzo MD CHEMISTRY Fi nal Result [facility] [address] [place] [address], [place] [phone] [facility] [address] [place] [address] * PATH TISSUE EXAM (10/02/2024 11:40 AM EDUCATIONAL PSYCHOLOGY PROFESSOR) [facility] Case Report Pathology Report Case: [id number] Authorizing Provider: Alonzo, Emily Collected: 10/02/2024 1140 MD Jeanette Ordering Location: [facility] Received: 10/04/2024 1452 Clinic Pathologist: Jocelyn Wagner MD Specimen: Right Labia 10/08/2024 5:32 PM [facility] Final Diagnosis A) VULVA, RIGHT LABIA, SHAVE BIOPSY: 1. High grade squamous intraepithelial lesion (KENNEDI 2) arising within a condyloma acuminatum (KENNEDI 1) 2. Peripheral margin: Involved by KENNEDI 1 and KENNEDI 2 3. Negative for invasive carcinoma 10/08/2024 5:32 PM [facility] Clinical Information History of condyloma acuminata (JULIUS-1). Shave biopsy performed. 10/08/2024 5:32 PM [facility] Gross Description A) Received in formalin, labeled with the patient's name and date of , is a 0.7 x 0.5 cm anderson skin shave. The skin surface displays a 0.5 x 0.5 x 0.2 cm anderson-white, raised lesion that is at the closest peripheral skin edge. The specimen is inked yellow, trisected and entirely submitted 1 cassette. JKT 10/05/2024 10/08/2024 5:32 PM [facility] [employer] Microscopic Description The final diagnosis is based on microscopic examination of appropriate sections of all specimens. A p16 immunostain was performed on part A to assist in evaluation. The p16 immunostain demonstrates diffuse block expression within a portion of the lesion. 10/08/2024 5:32 PM [facility] Additional [facility] at [facility], Central Laboratory - [address] [facility] [address] [address] Immunohistochemist ry controls were reviewed and approved by the pathologist during this examination. 10/08/2024 5:32 PM [facility] Other (Right Labia) Non-Blood / Unknown 10/02/2024 11:40 AM EDUCATIONAL PSYCHOLOGY PROFESSOR 10/04/2024 2:52 PM EDUCATIONAL PSYCHOLOGY PROFESSOR Comment:H/o condyloma accumi natum with CIN1 (mild dysplasia) us Emily Alonzo MD PATHOLOGY/CYTOLOGY Final Result [facility] [address] [place] [address], [place] * XR MAMMO KADIE BILAT SCREEN (09/13/2023 8:32 AM EDUCATIONAL PSYCHOLOGY PROFESSOR) Anatomical Region Laterality Modality BREASTS, Breast Left, Breast Right Bilateral Mammography Impressions 09/13/2023 3:57 PM EDUCATIONAL PSYCHOLOGY PROFESSOR There is no radiographic evidence for malignancy. Recommend annual mammograms. MAMMOGRAM ASSESSMENT: ACR 1 Negative PATIENTS: You will also receive a letter with your examination results in an easy to read format. If you have questions about your results, please contact your referring provider. Narrative 09/13/2023 3:57 PM EDUCATIONAL PSYCHOLOGY PROFESSOR For Patients: As a result of the Century Cures Act, medical imaging exams and procedure reports are released immediately into your electronic medical record. You may view this report before your referring provider. If you have questions, please contact your health care provider. XR MAMMO KADIE BILAT SCREEN [[id number]] CLINICAL HISTORY: This is an asymptomatic 73 y.o. patient. INDICATION FOR EXAM: Mammogram Screening. TECHNIQUE: CC & MLO views were obtained. This study was evaluated with the assistance of Computer-Aided Detection. Breast Tomosynthesis was used in interpretation. COMPARISON FILM: Yes 09/22/21 [facility]18 [facility] FINDINGS: The breasts are almost entirely fatty. There are no dominant masses, suspicious micro calcifications or areas of architectural distortion. us Irma Erazo DO MAMMO Final Resu lt * LIPID PANEL W REFLEX MEASURED LDL (09/13/2023 8:10 AM EDUCATIONAL PSYCHOLOGY PROFESSOR) CHOLESTEROL,TOTAL 197 100 - 199 mg/dL 09/13/2023 3:03 PM EDUCATIONAL PSYCHOLOGY PROFESSOR [facility] Comment: Cholesterol, Total Reference Ranges Desirable <200 mg/dL Borderline 200-239 mg/dL High >=240 mg/dL TRIGLYCERIDES 75 <150 mg/dL 09/13/2023 3:03 PM EDUCATIONAL PSYCHOLOGY PROFESSOR [facility] HDL CHOLESTEROL 81 >40 mg/dL 3:03 PM EDUCATIONAL PSYCHOLOGY PROFESSOR [facility] TR[facility] NON-HDL CHOLESTEROL 116 <145 mg/dl 09/13/2023 3:03 PM EDUCATIONAL PSYCHOLOGY PROFESSOR [facility] CHOL/HDL RATIO 2.43 <4.50 09/13/2023 3:03 PM EDUCATIONAL PSYCHOLOGY PROFESSOR [facility] LDL CHOLESTEROL 101 <=130 mg/dL 09/13/2023 3:03 PM EDUCATIONAL PSYCHOLOGY PROFESSOR [facility] VLDL CHOLESTEROL 15 <=30 mg/dL 09/13/2023 3:03 PM EDUCATIONAL PSYCHOLOGY PROFESSOR [facility] TR[facility] PROVIDER ORDERED STATUS RANDOM 09/13/2023 3:03 PM EDUCATIONAL PSYCHOLOGY PROFESSOR [facility] Blood BLOOD SPECIMEN / Unknown Venipuncture / Unknown 09/13/2023 8:10 AM EDUCATIONAL PSYCHOLOGY PROFESSOR 09/13/2023 8:10 AM EDUCATIONAL PSYCHOLOGY PROFESSOR Irma Erazo DO CHEMISTRY Final Resu lt [facility] [address] [place] [address], * OCCULT BLOOD IFOBT STOOL (08/16/2022 2:45 PM EDUCATIONAL PSYCHOLOGY PROFESSOR) STOOL BLOOD ,IFOBT Negative Negative 08/18/2022 3:07 PM EDUCATIONAL PSYCHOLOGY PROFESSOR [facility] Stool STOOL SPECIMEN / Unknown Non-Blood / Unknown 08/16/2022 2:45 PM EDUCATIONAL PSYCHOLOGY PROFESSOR 08/18/2022 2:45 PM EDUCATIONAL PSYCHOLOGY PROFESSOR Bethanie Dumont MD LABORATORY Fi nal Result [facility] [address] [place] [address], * (ABNORMAL) XR DXA BONE DENSITY 1 SITE AXIAL AND 1 SITE PERIPHERAL (09/22/2021 10:33 AM EDUCATIONAL PSYCHOLOGY PROFESSOR) Anatomical Region Laterality Modality LUMBAR SPINE Other Impressions 10/02/2021 7:50 AM EDUCATIONAL PSYCHOLOGY PROFESSOR Osteoporosis. RECOMMENDATIONS: The National Osteoporosis Foundation recommends pharmacologic treatment for patients with T-scores of -2.5 or less, patients with prior history of fragility fractures, or patients with 10-year probability of greater than 3% at hips or greater than 20% of suffering major osteoporotic fractures. Recommend continued optimization of calcium and vitamin D intake through dietary means and/or supplementation and regular exercise. Consider pharmacologic therapy for osteoporosis. Follow-up bone density reading in 2 years if therapy initiated to assess therapeutic efficacy. Jo Casiano PA-C [facility] 10/02/2021 Narrative 10/02/2021 7:50 AM EDUCATIONAL PSYCHOLOGY PROFESSOR For Patients: Results are automatically released to your [facility]) account once available, in compliance with federal regulations. This means that you may see your results before your provider has had a chance to review them. Please allow 2-3 business days for your provider to comment on the results. XR DXA Bone Mineral Density (BMD) EXAM LOCATION: [address] [address] PATIENT NAME: Hanna Lopez DATE OF : 1950 EXAM DATE: 09/22/2021 REQUESTING PROVIDER: Bethanie Dumont MD GENDER AT : female HEIGHT: 5' 3.15 (08/25/2021) WEIGHT: 152 lb (08/25/2021) MENOPAUSAL STATUS: Postmenopausal RACE/ETHNICITY: White RISK FACTORS: History of Fragility Fracture (at a major site), Smoking (prior), Steroid Medication (non-topical) and White Race CURRENT MEDICATION FOR BONE LOSS: NONE INDICATION: Screening for osteoporosis COMPARISON DATE(S): None DXA scans are compared to prior studies for a patient only when the two (or more) studies were performed on the same scanner. It is not possible to compare data generated on one scanner to data from another because there are not standards in DXA equipment. This applies even if the two scanners are made by the same stone polisher hand. PROCEDURE: Dual-energy x-ray absorptiometry performed with routine technique. Reporting is completed in the form of a T-score. The T-score represents the standard deviation from peak bone mass based on young healthy adult. A Z-score is used for diagnosis in premenopausal women, and for men under the age of 50. FINDINGS: RESULTS FEMUR Left femoral neck BMD: 0.580 g/cm2 T-Score: - 3.3 Z-Score: - 1.6 Change from prior: None Left hip BMD: 0.568 g/cm2 T-Score: - 3.5 Z-Score: - 2.0 Change from prior: None RESULT FOREARM Left Forearm distal radius BMD: 0.531 g/cm2 T-Score: - 3.9 Z-Score: - 2.0 Change from prior: None WHO criteria: Normal: T-score at or above -1 SD Osteopenia: T-score between -1.1 and -2.4 SD Osteoporosis: T-score at or below -2.5 SD Bethanie Dumont MD DEXA Fi nal Result * ANTI HCV [64205.2] (02/21/2017 9:29 AM CDT) Pathologist [facility] [place] HEPATITIS C ANTIBODY Non-Reacti ve Non-Reacti ve 02/21/2017 3:32 PM CDT [facility] Blood BLOOD SPECIMEN / Unknown Venipuncture / Unknown 02/21/2017 9:29 AM CDT 02/21/2017 9:29 AM CDT Narrative [facility] - 02/21/2017 3:32 PM CDT Antibodies to HCV not detected; does not exclude the possibility of exposure to HCV. Bethanie Dumont MD SEND OUTS Fi nal Result [facility] [address] [place] [address], * CT CHEST PE STUDY (12/29/2015 6:56 PM CDT) Anatomical Region Laterality Modality CHEST, THORAX, HEART Computed To mography 12/29/2015 7:21 PM CDT Narrative 12/29/2015 7:21 PM CDT INDICATION: Shortness of breath, chest tightness and tachycardia for 1 month. TECHNIQUE: CT chest pulmonary angiogram acquired with IV contrast. COMPARISON: 11/10/2011 [facility] FINDINGS: Cardiovascular structures: Normal vascular enhancement of the pulmonary arteries, no sign of pulmonary embolism. Heart size is normal. No sign of aneurysm or dissection in the thoracic aorta. Mediastinum and kalin: No mass or adenopathy. Lungs: There is a stable 4 mm nodule in the left lower lobe on image 87. A stable 3 mm nodule is present in the right upper lobe on image 61 and in the right lower lobe on image 63. A calcified granuloma is seen in the right apex. Mild wispy atelectasis or scarring is seen in the anterior lung bases. Mild centrilobular emphysema is present bilaterally and most pronounced in the apices. Pleura & pericardium: No effusions. Chest wall & axilla: No mass or adenopathy. Bones: No significant findings. Upper abdomen: Unremarkable. IMPRESSION: 1. No evidence of acute pulmonary emboli seen. 2. There are several subcentimeter nodules within the right lung that are stable since 2011 which is suggestive of a benign etiology. Dictated by Virgil Blanco MD @ 12/29/2015 7:21:37 PM Dictated by: Virgil Blanco MD @ 12/29/2015 19:21:43 (Electronically Signed) Procedure Note Virgil Blanco MD - 12/29/2015 INDICATION: Shortness of breath, chest tightness and tachycardia for 1 month. TECHNIQUE: CT chest pulmonary angiogram acquired with IV contrast. COMPARISON: 11/10/2011 [facility] FINDINGS: Cardiovascular structures: Normal vascular enhancement of the pulmonaryarteries, no sign of pulmonary embolism. Heart size is normal. No sign ofaneurysm or dissection in the thoracic aorta. Mediastinum and kalin: No mass or adenopathy. Lungs: There is a stable 4 mm nodule in the left lower lobe on image 87. Astable 3 mm nodule is present in the right upper lobe on image 61 and inthe right lower lobe on image 63. A calcified granuloma is seen in theright apex. Mild wispy atelectasis or scarring is seen in the anteriorlung bases. Mild centrilobular emphysema is present bilaterally and mostpronounced in the apices. Pleura & pericardium: No effusions. Chest wall & axilla: No mass or adenopathy. Bones: No significant findings. Upper abdomen: Unremarkable. IMPRESSION: 1. No evidence of acute pulmonary emboli seen. 2. There are several subcentimeter nodules within the right lung that arestable since 2011 which is suggestive of a benign etiology. Dictated by Virgil Blanco MD @ 12/29/2015 7:21:37 PM Dictated by: Virgil Blanco MD @ 12/29/2015 19:21:43 (Electronically Signed) Sharron Adams MD CT Final Result from Last 3 Months or Most Recently Relevant to Health Maintenance Insurance MEDICARE PART A HB ONLY MEDICARE PB ONLY MEDICARE PART B HB ONLY [phone] (Work) [id number] [place] [id number] [facility] [id number] [place] [address] [employer] [phone] (Work) [id number] [place] [address] [employer] Member Subscriber Plan / Payer (Ef fective 2015-Present) Name:Hanna Lopez Relation to Subscriber:Employee Name:[employer] Date of :2000 (Home) [phone] (Work) Address: [address] [place] [address] Payer ID:Not on file Group ID:Not on file Type:Not on file Address: [address] [address] [phone] (Work) [id number] [place] [address] [employer] [facility] Address: [address] [address] [phone] (Work) [id number] [place] [address] [employer] Care Teams Manager Production Relationship Specialty Start Date End Date Emily Alonzo MD [address] [place] [address] PCP - General Family Practice 12/07/23 Yi Monte MD Pulmonology Pulmonary Medicine 10/18/11 Andrea Ocampo MD [address] [place] [address] [address] Sports Medicine 08/15/12 Andrea Ocampo MD [address] [place] [address] [address] Sports Medicine 10/19/12
[2024-12-18 11:47] VITALS: BP 102/68; PULSE 100; RESP 18; TEMP 36.4; O2SAT 98; BMI 23.8
--- NOTE | 2024-12-18 12:10 | CRLHL7_ITS ---
For Patients: As a result of the Century Cures Act, medical imaging exams and procedure reports are released immediately into your electronic medical record. You may view this report before your referring provider. If you have questions, please contact your health care provider. INDICATION: Cough. TECHNIQUE: Chest 2 views. COMPARISON: 07/04/2023. FINDINGS: No pneumothorax or pleural effusion. Lungs are clear. Cardiac and mediastinal contours are within normal limits. Upper abdomen and osseous structures as imaged show no acute abnormality. Bone demineralization, degenerative and postoperative changes, as before. IMPRESSION: No evidence of acute cardiopulmonary disease. Dictated by Fernando Laws MD @ 12/18/2024 1:04:46 PM (Electronically Signed)
--- NOTE | 2024-12-18 12:26 | ED.GENADULT ---
HPI - General Adult General Date Seen: 12/18/24 Chief complaint: Shortness of Breath/Dyspnea Stated complaint: Cough Time Seen by Provider: 12/18/24 11:53 History of Present Illness HPI narrative: Patient is a 74-year-old woman here for evaluation of acute on chronic cough, as well as some weakness, chronic left shoulder pain, shortness of breath. She does have a history of COPD, she is on p.r.n. oxygen at home and using it more often than usual. She says she has had this dry cough for a very long time but it is much worse and she is having paroxysms of cough that make it difficult to breathe. She has not had fevers. She says she has had symptoms like this previously which have responded to prednisone and Levaquin. She has chronic left shoulder pain, there does not seem to be anything acutely new with that. She does not have any chest pain, does have some pain in the side of her neck. Related Data Home Medications ?Medication ?Instructions ?Recorded ?Confirmed albuterol sulfate 90 mcg/actuation 2 puff inhalation Q4H PRN wheezing 07/04/23 12/18/24 aerosol inhaler atorvastatin 20 mg tablet 20 mg PO DAILY 07/04/23 12/18/24 lisinopril 5 mg tablet 5 mg PO DAILY 07/04/23 12/18/24 metformin 500 mg tablet 500 mg PO BID 07/04/23 12/18/24 montelukast 10 mg tablet 10 mg PO DAILY 07/04/23 12/18/24 omeprazole 20 mg capsule,delayed 20 mg PO DAILY 07/04/23 12/18/24 release trazodone 100 mg tablet 50 mg PO QPM 07/04/23 12/18/24 venlafaxine 37.5 mg PO 07/04/23 capsule,extended release 24 hr Allergies Allergy/AdvReac Type Severity Reaction Status Date / Time Penicillins Allergy Unknown Verified 12/18/24 11:53 Review of Systems Status of ROS: Reports: 6 or more systems reviewed and unremarkable except as noted in History and below [facility] Social History Smoking Status: Former smoker How often do you have a drink containing alcohol: never AUDIT-C Alcohol total score: 0 Non-prescribed substance use: denies use Exam Narrative: Exam Narrative: Vital signs reviewed In general, alert, nontoxic elderly woman. No significant coughing while in the ER, speaking in full sentences. Head: Normocephalic, atraumatic. Eyes: Sclera clear. Pupils equal and reactive. ENT: Mucous membranes moist. Neck: Supple without adenopathy. Heart: Regular rate and rhythm without murmur. Lungs: Clear. No increased work of breathing, crackles or wheezes. Abdomen: Soft, nontender to palpation. Extremities: Well perfused, pulses intact. No significant edema. Neurologic: Alert, conversant. Speech fluent, face symmetric. Moves all extremities equally. Skin: Warm, dry well perfused. Affect: Normal. Const: Vital Signs, click to edit/add: Vital Signs - 24 hr 12/18/24 11:47 12/18/24 12:55 12/18/24 13:46 Temperature 97.6 F Pulse Rate 79 77 Pulse Rate [Pulse Oximeter] 100 Respiratory Rate 18 16 Blood Pressure 133/64 Blood Pressure [Ri ght Upper Arm] 102/68 Pulse Oximetry 98 94 97 Oxygen Delivery Me thod Room Air Room Air Course Course ED Course: Patient had an EKG which shows a sinus rhythm, ventricular rate of 81, small voltages otherwise no acute ST segment changes, unremarkable T-waves. Diagnostic considerations would include COPD exacerbation, pneumonia, pulmonary embolism, congestive heart failure, anemia, metabolic derangements among others. I did do a chest x-ray which by my review is negative. Final radiology read reviewed and link below. Labs reviewed as well. She did have an elevated D-dimer today at 2.9, she was seen for similar symptoms a little over year ago and her D-dimer was near normal for age at 0.88 at that time. Therefore, I did feel she should have a CT scan to look for pulmonary embolism. Her BNP is normal, no evidence of congestive heart failure on imaging or by labs. Troponin was negative. Viral swab was negative, troponin was negative. White blood cell count was normal, hemoglobin of 13. I reviewed her CT scan of the chest with contrast, I do not see evidence of pulmonary embolism, consolidation, or other significant findings but I am awaiting radiology read. Her sodium is low at 126. I gave her 500 mL of normal saline here. Will have her on some salt replacement at home. I recommended that her sodium be rechecked in clinic in the next couple of days to make sure that it is going up. It is possible this might be contributing to some of her fatigue/weakness. For her cough, will go ahead and treat her with the medications that she says have been beneficial in the past. I am prescribing prednisone and levofloxacin, as she feels strongly that this is what works for her. She is resistant to other medications. Acknowledge the increase in risk of tendon rupture with this combination. Vital Signs Vital signs: Initial Vital Signs Temperature 97.6 F 12/18/24 11:47 Temperature Source Temporal Artery Scan 12/18/24 11:47 Pulse Rate 100 12/18/24 11:47 Respiratory Rate 18 12/18/24 11:47 Blood Pressure 102/68 12/18/24 11:47 Blood Pressure Mean 79 12/18/24 11:47 Blood Pressure Position Sitting 12/18/24 11:47 Pulse Oximetry 98 12/18/24 11:47 Oxygen Delivery Method Room Air 12/18/24 11:47 Vital Signs Temperature 97.6 F 12/18/24 11:47 Pulse Rate 100 12/18/24 11:47 Respiratory Rate 18 12/18/24 11:47 Blood Pressure 102/68 12/18/24 11:47 Pulse Oximetry 98 12/18/24 11:47 Oxygen Delivery Method Room Air 12/18/24 11:47 Temperature 97.6 F 12/18/24 11:47 Pulse Rate 77 12/18/24 13:46 Respiratory Rate 16 12/18/24 13:46 Blood Pressure 133/64 12/18/24 13:46 Pulse Oximetry 97 12/18/24 13:46 Oxygen Delivery Method Room Air 12/18/24 13:46 Medications Administered Medications: Discontinued Medications Generic Name Dose Route Start Last Admin Trade Name Freq PRN Reason Stop Dose Admin Sodium Chloride 500 mls @ 500 mls/hr 12/18/24 13:25 12/18/24 15:03 0.9 % Sodium Chloride 500 Ml IV 12/18/24 14:24 Infused .Q1H ONE Infusion Medical Decision Making Lab Data Labs: Lab Results 12/18/24 12/18/24 Range/Units 12:11 12:42 WBC 6.76 (4.50-11.00) K/uL RBC 4.39 (4.00-5.20) m/uL Hgb 13.0 (12.0-16.0) gm/dL Hct 38.4 (33.0-51.0) % MCV 88 (80-100) fL MCH 30 (26-34) pg MCHC 34 (32-36) gm/dL RDW Coeff of Monica 12.5 (11.5-15.5) % Plt Count 281 (140-440) K/uL Neut % (Auto) 68.6 (42.0-72.0) % Lymph % (Auto) 19.4 L (20-44) % [place] % (Auto) 9.2 (0.0-11.0) % Eos % (Auto) 1.5 (0.0-7.0) % Baso % (Auto) 0.6 (0.0-3.0) % Neut # (Auto) 4.64 (1.7-7.0) K/uL Lymph # (Auto) 1.30 (0.90-2.90) K/uL [place] # (Auto) 0.60 (0.00-0.90) K/UL Eos # (Auto) 0.10 (0.00-0.50) K/uL Baso # (Auto) 0.04 (0.00-0.30) K/uL Abs Immat Gran (auto) 0.05 (0.00-0.30) K/uL Imm/Tot Granulo (auto) 0.7 % D-Dimer Quant (PE/DVT) 2.91 H (0.00-0.50) ug/ml Sodium 126 L (135-149) mmol/L Potassium 4.7 (3.6-5.1) mmol/L Chloride 90 L (96-114) mmol/L Carbon Dioxide 23 (20-32) mmol/L Anion Gap 13 (7-15) mEq/L BUN 19 (7-30) mg/dL Creatinine 0.8 (0.5-1.5) mg/dL Estimated Creat Clear 42.62 Estimated GFR 77 ml/min Glucose 78 (60-115) mg/dL Calcium 8.9 (8.4-10.6) mg/dL C-Reactive Protein 1.3 H (0.5-1.0) mg/dL NT-Pro-B Natriuret Pep 170 pg/mL SARS-CoV-2 (PCR) Negative SARS-CoV-2 (Negative) Influenza Type A (PCR) Negative PCR FLU A (Negative) Influenza Type B (PCR) Negative PCR FLU B (Negative) RSV (PCR) Negative PCR RSV (Negative) POC Troponin I 0.01 (0.01-0.04) ng/ml Imaging Data Chest x-ray: Attestation: I have reviewed the pertinent imaging results. Radiologist's impression: Patient: Hanna Lopez MR#: [id number] : 1950 Acct:[id number] Loc: ED Service Date: 12/18/[address]: Ordering Physician: Jocelyn Espino M.D. Date of Service: 12/18/24 Procedure(s): XR chest 2V Accession Number(s): [id number] cc: Bethanie Dumont M.D.; Jocelyn Espino M.D.~ For Patients: As a result of the Cures Act, medical imaging exams and procedure reports are released immediately into your electronic medical record. You may view this report before your referring provider. If you have questions, please contact your health care provider. INDICATION: Cough. TECHNIQUE: Chest 2 views. COMPARISON: 07/04/2023. FINDINGS: No pneumothorax or pleural effusion. Lungs are clear. Cardiac and mediastinal contours are within normal limits. Upper abdomen and osseous structures as imaged show no acute abnormality. Bone demineralization, degenerative and postoperative changes, as before. IMPRESSION: No evidence of acute cardiopulmonary disease. Dictated by Fernando Laws MD @ 12/18/2024 1:04:[address] scan - chest: Attestation: I have reviewed the pertinent imaging results. Radiologist's impression: Patient: Hanna Lopez MR#: [id number] : 1950 Acct:[id number] Loc: ED Service Date: 12/18/[address]: Ordering Physician: Jocelyn Espino M.D. Date of Service: 12/18/24 Procedure(s): CT angio chest PE protocol Accession Number(s): [id number] cc: Jocelyn Espino M.D.; Emily Alonzo MD~ For Patients: As a result of the Cures Act, medical imaging exams and procedure reports are released immediately into your electronic medical record. You may view this report before your referring provider. If you have questions, please contact your health care provider. INDICATION: Cough. Shortness of breath. Elevated D-dimer. TECHNIQUE: CT chest pulmonary angiogram acquired with 95 cc of Isovue 370 IV contrast. COMPARISON: CT pulmonary angiogram 07/04/2023. FINDINGS: No evidence of pulmonary embolus. Main pulmonary artery is normal in caliber. Aortic atherosclerosis. Thoracic aorta is normal in caliber. Coronary artery calcifications. Heart size is within normal limits. No pleural or pericardial effusions. No pathologic lymphadenopathy. Thoracic wall soft tissues are unremarkable. No pneumothorax. Central airways are patent. Stable bilateral subcentimeter nodules consistent with a benign etiology. Mild basilar scarring or atelectasis. Mild emphysema. Lungs otherwise clear. Nonobstructing right nephrolithiasis. Visualized upper abdomen is otherwise unremarkable. Lumbar fusion hardware as imaged appears intact. Degenerative changes of the spine. No acute or suspicious osseous abnormality. IMPRESSION: 1. No evidence of pulmonary embolus or acute airspace disease. 2. Mild emphysema. 3. Stable subcentimeter pulmonary nodules consistent with a benign etiology. Dictated by Fernando Laws MD @ 12/18/2024 3:01:04 PM Please note that all CT scans at this facility use dose modulation, iterative reconstruction, and/or weight-based dosing when appropriate to reduce radiation dose to as low as reasonably achievable. Dictated by: Fernando Laws MD @ 12/18/2024 15:01:20 Discharge Plan Discharge Clinical Impression: COPD exacerbation, Hyponatremia Patient Disposition: Home, Self-Care Additional Instructions: Take prednisone and Levaquin as prescribed. Continue to use your inhaler as needed. Your sodium was low today, and I would recommend that he do either add some salt to your food is or buy salt tablets at the pharmacy. I would recommend your sodium be rechecked in clinic in the next couple of days. If you are feeling worse in any way, have fevers, significant shortness of breath, increasing weakness or falls, return to the ER at any time. Prescriptions: No Action metformin 500 mg tablet 500 mg PO BID venlafaxine 37.5 mg capsule,extended release 24hr PO atorvastatin 20 mg tablet 20 mg PO DAILY trazodone 100 mg tablet 50 mg PO QPM omeprazole 20 mg capsule,delayed release(DR/EC) 20 mg PO DAILY montelukast 10 mg tablet 10 mg PO DAILY lisinopril 5 mg tablet 5 mg PO DAILY albuterol sulfate 90 mcg/actuation HFA aerosol inhaler 2 puff INHALATION Q4H PRN (Reason: wheezing) Follow Up/Referrals: Bethanie Dumont MD [Referring] - Stand Alone Forms: [employer] Info Instructions
[2024-12-18 12:55] VITALS: PULSE 79; O2SAT 94
[2024-12-18 13:03] LABS: Basophils Absolute Auto 0.04 K/uL (0.00-0.30); Basophils Percent Auto 0.6 % (0.0-3.0); Eosinophils Percent Auto 1.5 % (0.0-7.0); Hematocrit 38.4 % (33.0-51.0); Immature Granulocytes Abs Auto 0.05 K/uL (0.00-0.30); Immature Granulocytes Pct Auto 0.7 %; Lymphocytes Percent Auto 19.4 % (20-44); Mean Corpuscular HGB Conc 34 gm/dL (32-36); Mean Corpuscular Hemoglobin 30 pg (26-34); Mean Corpuscular Volume 88 fL (80-100); Monocytes Percent Auto 9.2 % (0.0-11.0); Neutrophils Absolute Auto 4.64 K/uL (1.7-7.0); Neutrophils Percent Auto 68.6 % (42.0-72.0); Platelet Count* 281 K/uL (140-440); RDW Coefficient of Variation % 12.5 % (11.5-15.5); Red Blood Count 4.39 m/uL (4.00-5.20); White Blood Count* 6.76 K/uL (4.50-11.00)
[2024-12-18 13:06] LABS: Slide Review Reflex No
[2024-12-18 13:08] LABS: Troponin, Point-of-Care* 0.01 ng/ml (0.01-0.04)
[2024-12-18 13:15] LABS: Chloride* 90 mmol/L (96-114)
[2024-12-18 13:16] LABS: Potassium* 4.7 mmol/L (3.6-5.1); Sodium* 126 mmol/L (135-149)
[2024-12-18 13:18] LABS: Blood Urea Nitrogen* 19 mg/dL (7-30); Creatinine* 0.8 mg/dL (0.5-1.5); Est. Creatinine Clearance* 42.62; Estimated Glomerular Filt Rate 77 ml/min
[2024-12-18 13:19] LABS: Anion Gap 13 mEq/L (7-15); Calcium* 8.9 mg/dL (8.4-10.6); Carbon Dioxide* 23 mmol/L (20-32); Glucose* 78 mg/dL (60-115)
[2024-12-18 13:22] LABS: C Reactive Protein* 1.3 mg/dL (0.5-1.0)
[2024-12-18 13:26] LABS: D Dimer Quantitative* 2.91 ug/ml (0.00-0.50)
[2024-12-18 13:32] LABS: NT Pro B Type NatriureticPept* 170 pg/mL
--- OUTSIDE RECORDS SUMMARY | 2024-12-18 13:38 | XMS_ITS ---
Author Name Interface, [id number] lity Address [address] [place] [address] [address] [place] [address] Organization [facility] Address [address] [facility] [address] [place] [address] Care Team Providers Care Marketing Writer Name Role Phone Tanika Frias Unavailable Unavailable [...] 11/08/2024 Intravascular Diastolic 84 Notes Section * STATE FEDERAL RELATIONS DEPUTY DIRECTOR Onc Consult Note (Amended) GYNECOLOGIC ONCOLOGY CONSULT Patient Name: ANG KAY Patient : 1950 Patient Referring Physician: Emily Alonzo MD ([facility]) Primary GYNOncologist: Tanika Frias Date of Service: 11/12/[address] Emily Alonzo MD ([facility]) : I had the pleasure of seeing your patient, Miss KAY in regards to her recent referral for [diagnosis]. Though you will, no doubt, recall her history, the following is a copy of my consultation. Please do not hesitate to contact me directly with any concerns at my [place] office at . ??Again, I appreciate your referral of this delightful patient and your support of our practice.?? Sincerely Yours, Tanika Frias M.D. Gynecologic Oncology [facility] Operating at [facility] Reason for Consult: Primary diagnosis: VIN1 Prior treatments: [None Genetic testing: [ ] History of Present Illness (Supervisor [employer]): This is a delightful??who is being seen for her primary care evaluation and was noted to have a lesion of the posterior vulva.?? She ultimately underwent biopsy revealing KENNEDI 1-2 and presents today for further care and management. 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 The patient [...] are not palpably enlarged or nodular . ??Electrical Accessories Assembler is present during exam. Muscles and Joints: ??Extremities are warm and well perfused without edema or calf tenderness. Laboratory Data: Pathology Report (Final result) [id number] Authorizing Provider: Emily Alonzo MD Ordering Provider: Ordering Location: [facility] Collected: 10/02/2024 1140 Pathologist: Jocelyn Wagner [...] the right labia majora, Assessment & Plan ([employer]): This is a delightful??who is being [...] will be coordinated with her primary care aide. ??I also discussed with her the lack [...] I sent??more than 1 hour in direct [id number] patient consultation, conversation, and coordination of care. [...] signed by Tanika Frias MD 11/14/2024 09:06 ORTHODONTIC BAND MAKER
--- OUTSIDE RECORDS SUMMARY | 2024-12-18 13:38 | XMS_ITS ---
Author Name Interface, [id number] lity Address [address] [facility] [facility] [address] [address] Organization [facility] Address [address] [facility] [address] [address] Care Team Providers Care Spiral Gear Generator Name Role Phone Tanika Frias Unavailable Unavailable Allergies and Adverse Reactions Medication/Group Name Reaction Severity Date Penicillins 11/08/2024 Plan Date Type Value 11/08/2024 APPOINTMENT NEW PT CONSULT 4 5 MIN 11/08/2024 APPOINTMENT LAB 10 MIN Reason for Visit SURGERY 2 HR Encounters Date Name 11/08/2024 Vulvar dysplasia Problems Diagnosis Status Date of Diagnosi s Vulvar dysplasia Active Notes Section * PLANNING FEEDER Onc Consult Note (Amended) GYNECOLOGIC ONCOLOGY CONSULT Patient Name: ANG KAY Patient : 1950 Patient Referring Physician: Emily Alonzo MD ([facility]) Primary GYNOncologist: Tanika Frias Date of Service: 11/12/[address] Emily Alonzo MD ([facility]) : I had the pleasure of seeing your patient, Miss KAY in regards to her recent referral for [diagnosis]. Though you will, no doubt, recall her history, the following is a copy of my consultation. Please do not hesitate to contact me directly with any concerns at my [place] office at . ??Again, I appreciate your referral of this delightful patient and your support of our practice.?? Sincerely Yours, Tanika Frias M.D. Gynecologic Oncology [facility] Operating at 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 She ultimately underwent biopsy revealing KENNEDI 1-2 and presents today for further care and management. 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 The patient [...] are not palpably enlarged or nodular . ??Audio Visual Engineer is present during exam. Muscles and Joints: ??Extremities are warm and well perfused without edema or calf tenderness. Laboratory Data: Pathology Report (Final result) [id number] Authorizing Provider: Emily Alonzo MD Ordering Provider: Ordering Location: [facility] Collected: 10/02/2024 1140 Pathologist: Jocelyn Wagner [...] the right labia majora, Assessment & Plan (Weighmaster Lead Oncology): This is a delightful??who is being [...] which will be coordinated with her primary customer care voice consultant. ??I also discussed with her the lack [...] I sent??more than 1 hour in direct [id number] patient consultation, conversation, and coordination of care. [...] signed by Tanika Frias MD 11/14/2024 09:06 DISTRIBUTION CENTER ASSOCIATE
--- OUTSIDE RECORDS SUMMARY | 2024-12-18 13:38 | XMS_ITS ---
Author Name Interface, [id number] lity Address [address] [facility] [address] [address] Organization [facility] Address [address] [facility] [address] [address] Care Team Providers Care Master Chef Name Role Phone Tanika Frias Unavailable Unavailable Allergies and Adverse Reactions Medication/Group Name Reaction Severity Date Penicillins 11/08/2024 Plan Date Type Value 11/08/2024 APPOINTMENT NEW PT CONSULT 4 5 MIN 11/08/2024 APPOINTMENT LAB 10 MIN Reason for Visit SURGERY 2 HR Encounters Date Name 11/08/2024 Vulvar dysplasia Problems Diagnosis Status Date of Diagnosi s Vulvar dysplasia Active Notes Section * BULB INSPECTOR Onc Consult Note (Amended) GYNECOLOGIC ONCOLOGY CONSULT Patient Name: ANG KAY Patient : 1950 Patient Referring Physician: Emily Alonzo MD ([facility]) Primary GYNOncologist: Tanika Frias Date of Service: 11/12/[address] Emily Alonzo MD ([facility]) : I had the pleasure of seeing your patient, Miss KAY in regards to her recent referral for [diagnosis]. Though you will, no doubt, recall her history, the following is a copy of my consultation. Please do not hesitate to contact me directly with any concerns at my [place] office at . ??Again, I appreciate your referral of this delightful patient and your support of our practice.?? Sincerely Yours, Tanika Frias M.D. [facility]ologic [facility] Reason for Consult: Primary diagnosis: VIN1 Prior treatments: [None Genetic testing: [ ] History of Present Illness (Modern And Contemporary Art Curator Oncology): This is a delightful??who is being seen for her primary care evaluation and was noted to have a lesion of the posterior vulva.?? She ultimately underwent biopsy revealing KENNEDI 1-2 and presents today for further care and management. 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 The patient [...] are not palpably enlarged or nodular . ??Organizational Development Director is present during exam. Muscles and Joints: ??Extremities are warm and well perfused without edema or calf tenderness. Laboratory Data: Pathology Report (Final result) [id number] Authorizing Provider: Emily Alonzo MD Ordering Provider: Ordering Location: [facility] Collected: 10/02/2024 1140 Pathologist: Jocelyn Wagner MD [...] the right labia majora, Assessment & Plan (Modern And Contemporary Art Curator Oncology): This is a delightful??who is being [...] which will be coordinated with her primary rn complex care. ??I also discussed with her the lack [...] I sent??more than 1 hour in direct [id number] patient consultation, conversation, and coordination of care. Pain Care Management: Pain Scale: 7 Patient Care needs: Depressions Status: Not recorded on visit Smoking Status: Smoking Tobacco : Former smoker; Smokeless Tobacco : none found; Vaping : Never vaped Orders: Labs:? Medications:? Imaging:? Services:??* 11/08/2024, RTC, Instructions: Ayleen Олгьа, PA-C.7-10 days postop in person visit with Ольга for pathology review and wound check., Perform Date: 12/19/2024 * 11/08/2024, Schedule surgery, Instructions: Please schedule surgery with Dr. Frias. Procedure: []. Request Date: [ ]., Perform Date: 12/06/2024 Regimens: ?= Tanika Frias MD Copy to: ? Electronically signed by Tanika Frias MD 11/14/2024 09:06 SKEIN INSPECTOR
--- OUTSIDE RECORDS SUMMARY | 2024-12-18 13:38 | XMS_ITS | CCD ---
Author Name Interface, [id number] lity Address [address] [place] [address] [address] [place] [address] [facility] Address [address] [facility] [address] [place] [address] Care Team Providers Care Pattern Changer Name Role Phone Tanika Frias Unavailable Allergies and Adverse Reactions Care Plan Reason for Visit Encounters Problems Procedures Social History Vital Signs
--- OUTSIDE RECORDS SUMMARY | 2024-12-18 13:38 | XMS_ITS | CCD ---
Author Name Interface, [id number] lity Address [address] [place] [address] [address] [place] [address] [facility] Address [address] [facility] [address] [place] [address] Care Team Providers Care Glass Checker Name Role Phone Tanika Frias Unavailable Allergies and Adverse Reactions Care Plan Reason for Visit Encounters Problems Procedures Social History Vital Signs
--- OUTSIDE RECORDS SUMMARY | 2024-12-18 13:38 | XMS_ITS ---
Author Name Interface, [id number] lity Address [address] [place] [address] [address] [place] [address] Organization [facility] Address [address] [facility] [address] [place] [address] Care Team Providers Care Manager Document Control Name Role Phone Tanika Frias Unavailable Unavailable [...] 11/08/2024 Intravascular Diastolic 84 Notes Section * OPERATIONS WELDER Onc Consult Note (Amended) GYNECOLOGIC ONCOLOGY CONSULT Patient Name: ANG KAY Patient : 1950 Patient Referring Physician: Emily Alonzo MD ([facility]) Primary GYNOncologist: Tanika Frias Date of Service: 11/12/[address] Emily Alonzo MD ([facility]) : I had the pleasure of seeing your patient, Miss KAY in regards to her recent referral for [diagnosis]. Though you will, no doubt, recall her history, the following is a copy of my consultation. Please do not hesitate to contact me directly with any concerns at my [place] office at . ??Again, I appreciate your referral of this delightful patient and your support of our practice.?? Sincerely Yours, Tanika Frias M.D. Gynecologic Oncology [facility] Operating at [facility] Reason for Consult: Primary diagnosis: VIN1 Prior treatments: [None Genetic testing: [ ] History of Present Illness (Rn Surgical Pcu Oncology): This is a delightful??who is being seen for her primary care evaluation and was noted to have a lesion of the posterior vulva.?? She ultimately underwent biopsy revealing KENNEDI 1-2 and presents today for further care and management. 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 The patient [...] are not palpably enlarged or nodular . ??Optical Systems Engineer is present during exam. Muscles and Joints: ??Extremities are warm and well perfused without edema or calf tenderness. Laboratory Data: Pathology Report (Final result) [id number] Authorizing Provider: Emily Alonzo MD Ordering Provider: Ordering Location: [facility] Collected: 10/02/2024 1140 Pathologist: Jocelyn [...] the right labia majora, Assessment & Plan (Rn Surgical Pcu Oncology): This is a delightful??who is being [...] will be coordinated with her primary care giver. ??I also discussed with her the lack [...] I sent??more than 1 hour in direct [id number] patient consultation, conversation, and coordination of care. [...] signed by Tanika Frias MD 11/14/2024 09:06 LEAN SIX SIGMA SENIOR SPECIALIST
--- OUTSIDE RECORDS SUMMARY | 2024-12-18 13:39 | XMS_ITS | Clinical Summary ---
Author Organization [employer] Address [address] [place] [address] Care Team Providers Care Paperhanger Name Role Phone Yi Monte MD Unavailable [phone] Andrea Ocampo MD Unavailable [phone] Andrea Ocampo MD Unavailable [phone] Emily Alonzo MD Primary Care Prov [...] Department Care Team Description 12/17/2024 Nurse Triage [address] [address] Anil Thibodeaux MD Breathing Problem 12/03/[address] [address] Emily Alonzo MD Refill Request; CETIRIZINE 10/23/[address] [address] Emily Alonzo MD Follow Up (Panel Machine Setter ) 10/05/[address] [address] Emily Alonzo MD Refill Request (Lisinopril 5mg tablets) 10/05/[address] [address] Emily Alonzo MD Hypertension 10/02/2024 10:40 AM CHART SNATCHER Office Visit [address] [address] Emily Alonzo MD Medicare ANNUAL (subsequent) Visit (74 year old Medicare Wellness Exam ); Memory Loss (Slums); Lesion Removal (Shave biopsy ) 10/02/2024 Travel 09/28/[address] [address] Emily Alonzo MD Refill Request (Metformin) from Last 3 Months Immunizations Immunization Administration Dates Next Due COVID-19 vaccine ([employer] 30mcg/0.3mL) PFMDV 08/25/2021 Influenza, CCIIV3 (Age [...] on file Legal Sex Female 5:26 AM CHART SNATCHER Gender Identity Not on file Sexual Orientation Not on file 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 on 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 Not on file Not on file Obstetrics History Para Term AB IAB SAB Ectopic Multiple Livin g Live Births 1 1 Date Outcome GA Total Labor Labor/2nd/3rd Weight Sex Type Anes PTL Bibi A1 A5 Name Clin Last Filed Vital Signs Vital Sign Reading Time Taken Comments Blood Pressure 176/115 10/02/2024 10:56 AM CHART SNATCHER Pulse 56 10/02/2024 10:56 AM CHART SNATCHER Temperature 36.7 C (98 F) 06/21/2022 11:24 AM CDT Respiratory Rate 18 07/29/2020 11:36 AM CDT Oxygen Saturation 98% 09/11/2024 10:52 AM CHART SNATCHER Inhaled Oxygen Concentration - - Weight 66.7 kg (147 lb) 10/02/2024 10:56 AM CHART SNATCHER Height 157 cm (5' 1.81) 10/02/2024 10:56 AM CHART SNATCHER Body Mass Index 27.05 10/02/2024 10:56 AM CHART SNATCHER Plan of Treatment Health Maintenance Due Date [...] Diagnosis Comments FERRITIN Routine 10/02/2024 12:02 PM CHART SNATCHER Mild dementia with anxiety, unspecified dementia type (HC) Other somatoform disorders VITAMIN B12 Routine 10/02/2024 12:02 PM CHART SNATCHER Mild dementia with anxiety, unspecified dementia type (HC) TSH Routine 10/02/2024 12:02 PM CHART SNATCHER Mild dementia with anxiety, unspecified dementia type (HC) Anxiety disorder, unspecified type CBC WITH AUTO DIFFERENTIAL Routine 10/02/2024 12:02 PM CHART SNATCHER Mild dementia with anxiety, unspecified dementia type (HC) PATH TISSUE EXAM Routine 10/02/2024 11:4 0 AM CHART SNATCHER Condyloma acuminatum XR MAMMO KADIE BILAT SCREEN Routine 09/13/2023 8:32 AM CHART SNATCHER Visit for screening mammogram LIPID PANEL W REFLEX MEASURED LDL Routine 09/13/2023 8:10 AM CHART SNATCHER Hyperlipidemia, unspecified hyperlipidemia type OCCULT BLOOD IFOBT STOOL Routine 08/16/2022 2:45 PM CHART SNATCHER Screening for colon cancer XR DXA BONE DENSITY 1 SITE AXIAL AND 1 SITE PERIPHERAL Routine 09/22/2021 10:33 AM CHART SNATCHER Screening for osteoporosis ANTI HCV Routine 02/21/2017 9:29 AM CDT Need for hepatitis C screening test CT CHEST PE STUDY Routine 12/29/2015 6:5 6 PM CDT SOB (shortness of breath) Cough Pulmonary nodule from Last 3 Months or Most Recently Relevant to Health Maintenance Results * TSH [79110.1] (10/02/2024 12:02 PM CHART SNATCHER) Pathologist [facility] TSH 2.06 0.40 - 4.50 mIU/L [facility] Blood BLOOD SPECIMEN / Unknown 10/02/2024 12:02 PM CHART SNATCHER 10/02/2024 12:02 PM CHART SNATCHER us Emily Alonzo MD CHEMISTRY Fi nal Result [employer] [facility] [address] [place] [address], [facility] [address] [place] [address] * CBC AND DIFFERENTIAL (10/02/2024 12:02 PM CHART SNATCHER) Pathologist [facility] WHITE BLOOD CELL COUNT 6.0 3.8 - [...] BLOOD SPECIMEN / Unknown 10/02/2024 12:02 PM CHART SNATCHER 10/02/2024 12:02 PM CHART SNATCHER us Emily Alonzo MD HEMATOLOGY Fi nal Result [employer] [facility] [address] [place] [address], [place] [phone] [facility] [address] [place] [address] * FERRITIN (10/02/2024 12:02 PM CHART SNATCHER) [facility] FERRITIN 79 16 - 288 ng/mL [facility] Blood BLOOD SPECIMEN / Unknown 10/02/2024 12:02 PM CHART SNATCHER 10/02/2024 12:02 PM CHART SNATCHER Emily Alonzo MD CHEMISTRY Fi nal Result [facility] [address] [place] [address], [place] [phone] [facility] [address] [place] [address] * VITAMIN B12 [04821.0] (10/02/2024 12:02 PM CHART SNATCHER) [facility] VITAMIN B12 357 200 - 1,100 pg/mL [...] BLOOD SPECIMEN / Unknown 10/02/2024 12:02 PM CHART SNATCHER 10/02/2024 12:02 PM CHART SNATCHER Emily Alonzo MD CHEMISTRY Fi nal Result [facility] [address] [place] [address], [place] [phone] [facility] [address] [place] [address] * PATH TISSUE EXAM (10/02/2024 11:40 AM CHART SNATCHER) [facility] Case Report Pathology Report Case: [id number] Authorizing Provider: Alonzo, Emily Collected: 10/02/2024 1140 MD Jeanette Ordering Location: [facility] Received: 10/04/2024 1452 Clinic Pathologist: Jocelyn Wagner MD Specimen: Right Labia 10/08/2024 5:[address] [facility] Final Diagnosis A) VULVA, RIGHT LABIA, SHAVE BIOPSY: 1. High grade squamous intraepithelial lesion (KENNEDI 2) arising within a condyloma acuminatum (KENNEDI 1) 2. Peripheral margin: Involved by KENNEDI 1 and KENNEDI 2 3. Negative for invasive carcinoma 10/08/2024 5:32 PM [facility] for[MD] [facility] Clinical Information History of condyloma acuminata (JULIUS-1). Shave biopsy performed. 10/08/2024 5:32 PM [facility] for[MD] [facility] Gross Description A) Received [...] 1 cassette. JKT 10/05/2024 10/08/2024 5:32 PM [facility] for[MD] [facility] ENTR[facility] Microscopic Description The final diagnosis is based on microscopic examination of appropriate sections of all specimens. A p16 immunostain was performed on part A to assist in evaluation. The p16 immunostain demonstrates diffuse block expression within a portion of the lesion. 10/08/2024 5:[address] [facility] Additional Information Interpreted at [facility] iodine [facility] Central Laboratory - [address] [facility] [address], [place] [address] Immunohistochemist ry controls were reviewed and approved by the pathologist during this examination. 10/08/2024 5:[address] 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 [place] [address], [place] * XR MAMMO KADIE BILAT SCREEN (09/13/2023 8:32 AM CHART SNATCHER) Anatomical Region Laterality Modality BREASTS, Breast Left, Breast Right Bilateral Mammography Impressions 09/13/2023 3:57 PM CHART SNATCHER There is no radiographic evidence for malignancy. Recommend annual mammograms. MAMMOGRAM ASSESSMENT: ACR 1 Negative PATIENTS: You will also receive a letter with your examination results in an easy to read format. If you have questions about your results, please contact your referring provider. Narrative 09/13/2023 3:57 PM CHART SNATCHER For Patients: As a result of the Century Cures Act, medical imaging exams and procedure reports are released immediately into your electronic medical record. You may view this report before your referring provider. If you have questions, please contact your health care provider. XR MAMMO KADIE BILAT SCREEN [[id number]] CLINICAL HISTORY: This is an asymptomatic 73 y.o. patient. INDICATION FOR EXAM: Mammogram Screening. TECHNIQUE: CC & MLO views were obtained. This study was evaluated with the assistance of Computer-Aided Detection. Breast Tomosynthesis was used in interpretation. COMPARISON FILM: Yes 09/22/21 [facility] 06/26[facility]18 [facility] FINDINGS: The breasts are almost entirely fatty. There are no dominant masses, suspicious micro calcifications or areas of architectural distortion. us Irma Erazo DO MAMMO Final Resu lt * LIPID PANEL W REFLEX MEASURED LDL (09/13/2023 8:10 AM CHART SNATCHER) CHOLESTEROL,TOTAL 197 100 - 199 mg/dL 09/13/2023 3:03 PM CHART SNATCHER [facility] TRAL LABORAT[facility] Comment: Cholesterol, Total Reference Ranges Desirable <200 mg/dL Borderline 200-239 mg/dL High >=240 mg/dL TRIGLYCERIDES 75 <150 mg/dL 09/13/2023 3:03 PM CHART SNATCHER [facility] TR[facility] LABORATORY HDL CHOLESTEROL 81 >40 mg/dL 3:03 PM CHART SNATCHER [facility] TRAL LABORATORY NON-HDL CHOLESTEROL 116 <145 mg/dl 09/13/2023 3:03 PM CHART SNATCHER [facility] TRAL LABORATORY CHOL/HDL RATIO 2.43 <4.50 09/13/2023 3:03 PM CHART SNATCHER [facility] TR[facility] LABOR[facility] LDL CHOLESTEROL 101 <=130 mg/dL 09/13/2023 3:03 PM CHART SNATCHER [facility] TRAL LABORATORY VLDL CHOLESTEROL 15 <=30 mg/dL 09/13/2023 3:03 PM CHART SNATCHER [facility] TRAL LABORATORY PROVIDER ORDERED STATUS RANDOM 09/13/2023 3:03 PM CHART SNATCHER [facility] TRAL LABORATORY Blood BLOOD SPECIMEN / Unknown Venipuncture / Unknown 09/13/2023 8:10 AM CHART SNATCHER 09/13/2023 8:10 AM CHART SNATCHER Irma Erazo DO CHEMISTRY Final Resu lt [facility] [address] [place] [address], * OCCULT BLOOD IFOBT STOOL (08/16/2022 2:45 PM CHART SNATCHER) STOOL BLOOD ,IFOBT Negative Negative 08/18/2022 3:07 PM CHART SNATCHER [facility] Stool STOOL SPECIMEN / Unknown Non-Blood / Unknown 08/16/2022 2:45 PM CHART SNATCHER 08/18/2022 2:45 PM CHART SNATCHER Bethanie Dumont MD LABORATORY Fi nal Result [facility] [address] [place] [address], * (ABNORMAL) XR DXA BONE DENSITY 1 SITE AXIAL AND 1 SITE PERIPHERAL (09/22/2021 10:33 AM CHART SNATCHER) Anatomical Region Laterality Modality LUMBAR SPINE Other Impressions 10/02/2021 7:50 AM CHART SNATCHER Osteoporosis. RECOMMENDATIONS: The National Osteoporosis Foundation recommends [...] to assess therapeutic efficacy. Jo Casiano PA-C [facility] 10/02/2021 Narrative 10/02/2021 7:50 AM CHART SNATCHER For Patients: Results are automatically released to your [facility] account once available, in compliance with federal regulations. This means that you may see your results before your provider has had a chance to review them. Please allow 2-3 business days for your provider to comment on the results. XR DXA Bone Mineral Density (BMD) EXAM LOCATION: [address] [address] PATIENT NAME: Hanna Lopez DATE OF : [...] two scanners are made by the same assistant professor of philosophy. PROCEDURE: Dual-energy x-ray absorptiometry performed with routine [...] DEXA Fi nal Result * ANTI HCV [39049.2] (02/21/2017 9:29 AM CDT) Pathologist [facility] HEPATITIS C ANTIBODY Non-Reacti ve Non-Reacti ve 02/21/2017 3:32 PM CDT [facility] for[MD] [facility] TRAL LABORATORY Blood BLOOD SPECIMEN / Unknown Venipuncture / Unknown 02/21/2017 9:29 AM CDT 02/21/2017 9:29 AM CDT Narrative [facility] - 02/21/2017 3:32 PM CDT Antibodies to HCV not detected; does not exclude the possibility of exposure to HCV. Bethanie Dumont MD SEND OUTS Fi nal Result [facility] [address] [place] [address], * CT CHEST PE STUDY (12/29/2015 6:56 PM CDT) Anatomical Region Laterality Modality CHEST, THORAX, HEART Computed To mography 12/29/2015 7:21 PM CDT Narrative 12/29/2015 7:21 PM CDT INDICATION: Shortness of breath, chest tightness and tachycardia for 1 month. TECHNIQUE: CT chest pulmonary angiogram acquired with IV contrast. COMPARISON: 11/10/2011 [facility] FINDINGS: Cardiovascular structures: Normal vascular enhancement of [...] angiogram acquired with IV contrast. COMPARISON: 11/10/2011 [facility] FINDINGS: Cardiovascular structures: Normal vascular enhancement of [...] PB ONLY MEDICARE PART B HB ONLY [phone] (Work) [id number] [place] [address] [facility] [id number] [place] [address] [employer] [phone] (Work) [id number] [place] [address] [employer] Member Subscriber Plan / Payer (Ef fective 2015-Present) Name:Hanna Lopez Relation to Subscriber:Employee Name:[employer] Date of :2000 (Home) [phone] (Work) Address: [address] [place] [address] Payer ID:Not on file Group ID:Not on file Type:Not on file Address: [address] [address] [phone] (Work) [id number] [place] [address] [employer] [phone] (Work) [id number] [place] [id number] [employer] Care Teams Paperhanger Relationship Specialty Start Date End Date Emily Alonzo MD [address] [place] [address] PCP - General Family Practice 12/07/23 Yi Monte MD Pulmonology Pulmonary Medicine 10/18/11 Andrea Ocampo MD [address] [place] [address] Sports Medicine 08/15/12 Andrea Ocampo MD [address] [place] [address] Sports Medicine 10/19/12
[2024-12-18 13:46] VITALS: BP 133/64; PULSE 77; RESP 16; O2SAT 97
[2024-12-18] MEDS: 0.9 % SODIUM CHLORIDE 500 ML 500 ML IV (13:46)
--- NOTE | 2024-12-18 13:49 | CRLHL7_ITS ---
For Patients: As a result of the Cures Act, medical imaging exams and procedure reports are released immediately into your electronic medical record. You may view this report before your referring provider. If you have questions, please contact your health care provider. INDICATION: Cough. Shortness of breath. Elevated D-dimer. TECHNIQUE: CT chest pulmonary angiogram acquired with 95 cc of Isovue 370 IV contrast. COMPARISON: CT pulmonary angiogram 07/04/2023. FINDINGS: No evidence of pulmonary embolus. Main pulmonary artery is normal in caliber. Aortic atherosclerosis. Thoracic aorta is normal in caliber. Coronary artery calcifications. Heart size is within normal limits. No pleural or pericardial effusions. No pathologic lymphadenopathy. Thoracic wall soft tissues are unremarkable. No pneumothorax. Central airways are patent. Stable bilateral subcentimeter nodules consistent with a benign etiology. Mild basilar scarring or atelectasis. Mild emphysema. Lungs otherwise clear. Nonobstructing right nephrolithiasis. Visualized upper abdomen is otherwise unremarkable. Lumbar fusion hardware as imaged appears intact. Degenerative changes of the spine. No acute or suspicious osseous abnormality. IMPRESSION: 1. No evidence of pulmonary embolus or acute airspace disease. 2. Mild emphysema. 3. Stable subcentimeter pulmonary nodules consistent with a benign etiology. Dictated by Fernando Laws MD @ 12/18/2024 3:01:04 PM Please note that all CT scans at this facility use dose modulation, iterative reconstruction, and/or weight-based dosing when appropriate to reduce radiation dose to as low as reasonably achievable. Dictated by: Fernando Laws MD @ 12/18/2024 15:01:20 (Electronically Signed)
[2024-12-18 13:56] LABS: PCR FLU A Negative PCR FLU A (Negative); PCR FLU B Negative PCR FLU B (Negative); PCR RSV Negative PCR RSV (Negative); SARS PCR* Negative SARS-CoV-2 (Negative)
== END 2024-12-18 15:42 | disposition home or self-care (01) ==
PROVIDERS: Emergency Provider Emergency Medicine; PCP Student in an Organized Health Care Education/Training Program
DX: J44.1 Chronic obstructive pulmonary disease with (acute) exacerbation (principal); E87.1 Hypo-osmolality and hyponatremia
CPT/HCPCS: 36415; 71046; 71275; 80048; 83880; 84484; 85025; 85379; 86140; 87631; 93005; 96360; 99284; 99285; J7030; Q9967